=== PATIENT | female | born 1985 | race Caucasian/White ===

== ENCOUNTER 2021-09-21 10:56 | Outpatient (CLI) | payer BC, SELFPAY ==
[2021-09-21 13:53] LABS: HCG Quantitative* 3.36 mIU/mL
== END 2021-09-21 10:57 | disposition home or self-care (01) ==
LOC: FRMREF 10:57
PROVIDERS: Visit Provider Advanced Practice Midwife
DX: O20.9 Hemorrhage in early pregnancy, unspecified (principal)
CPT/HCPCS: 84702

== ENCOUNTER 2021-11-24 15:53 | Outpatient (CLI) | payer BC, SELFPAY ==
[2021-11-24 21:49] LABS: HCG Quantitative* 19.75 mIU/mL
== END 2021-11-24 15:54 | disposition home or self-care (01) ==
LOC: FRMREF 15:57
PROVIDERS: Visit Provider Obstetrics & Gynecology
DX: O20.9 Hemorrhage in early pregnancy, unspecified (principal)
CPT/HCPCS: 84702

== ENCOUNTER 2021-11-26 16:00 | Outpatient (CLI) | payer BC, SELFPAY ==
[2021-11-26 22:21] LABS: HCG Quantitative* 4.93 mIU/mL
== END 2021-11-26 16:01 | disposition home or self-care (01) ==
LOC: FRMREF 16:00
PROVIDERS: Visit Provider Obstetrics & Gynecology
DX: O20.9 Hemorrhage in early pregnancy, unspecified (principal)
CPT/HCPCS: 84702

== ENCOUNTER 2021-11-30 15:13 | Outpatient (CLI) | payer BC, SELFPAY ==
[2021-12-02 14:09] LABS: Beta-2-Microglob Serum/Plasma 1.6 mg/L (0.8-2.4)
[2021-12-03 01:22] LABS: Anti-Mullerian Hormone 4.384 ng/mL (0.176-11.705)
[2021-12-03 18:38] LABS: Cardiolipin Antibody IgA <10 APL (<=11); Cardiolipin Antibody IgG <10 GPL (<=14); Cardiolipin Antibody IgM 17 MPL (<=12)
[2021-12-13 14:05] LABS: Prothrombin Time 12.1 sec (12.0-15.5); dRVVT Screen 40 sec (33-44)
== END 2021-11-30 15:14 | disposition home or self-care (01) ==
PROVIDERS: Visit Provider Obstetrics & Gynecology
DX: N97.9 Female infertility, unspecified (principal); N96 Recurrent pregnancy loss
CPT/HCPCS: 82232; 83520; 85610; 85613; 85730; 86147; 88262

== ENCOUNTER 2021-12-27 15:35 | Outpatient (CLI) | payer BC, SELFPAY ==
--- NOTE | 2021-12-27 16:00 | CRLHL7_ITS ---
For Patients: As a result of the Century Cures Act, medical imaging exams and procedure reports are released immediately into your electronic medical record. You may view this report before your referring provider. If you have questions, please contact your health care provider. INDICATION: Recurrent miscarriage. TECHNIQUE: Ultrasound pelvis transvaginal for better assessment or to better visualize the endometrium. Real-time sonographic images with color Doppler of the ovaries. Spectral waveform imaging was not performed. COMPARISON: None. FINDINGS: Uterus: 5.7 x 2.9 x 3.6 cm. Uterus is retroflexed. Normal echotexture of the myometrium. Small cervical nabothian cysts. No masses. Endometrium: Transvaginal imaging was performed to better evaluate the endometrium. Endometrial thickness measures 7 mm. No sign of endometrial mass or fluid. Right ovary measures 2.3 x 1.6 x 1.8 cm and left ovary measures 2.5 x 1.5 x 1.7 cm. No ovarian or adnexal masses. Normal color flow in the ovaries. Cul-de-sac: No significant free fluid. IMPRESSION: Normal exam. Dictated by Jermaine Rodríguez MD @ 12/28/2021 9:30:22 AM (Electronically Signed)
== END 2021-12-27 15:36 | disposition home or self-care (01) ==
LOC: US 15:35
PROVIDERS: Visit Provider Obstetrics & Gynecology
DX: N96 Recurrent pregnancy loss (principal)
CPT/HCPCS: 76830; 76856

== ENCOUNTER 2022-01-20 14:05 | Outpatient (CLI) | payer BC, SELFPAY ==
[2022-01-20 22:23] LABS: HCG Quantitative* < 2.39 mIU/mL
== END 2022-01-20 14:06 | disposition home or self-care (01) ==
LOC: FRMREF 14:05
PROVIDERS: Visit Provider Obstetrics & Gynecology
DX: O02.81 Inappropriate change in quantitative human chorionic gonadotropin (hCG) in early pregnancy (principal)
CPT/HCPCS: 84702

== ENCOUNTER 2022-09-20 12:29 | Outpatient (CLI) | payer BC, SELFPAY ==
--- NOTE | 2022-09-20 | CRLHL7_ITS ---
For Patients: As a result of the Century Cures Act, medical imaging exams and procedure reports are released immediately into your electronic medical record. You may view this report before your referring provider. If you have questions, please contact your health care provider. CLINICAL HISTORY: RECURRENT LOSS 08/14/2022 TECHNIQUE: 2D patel scale and color Doppler images were acquired of the pelvis using a transvaginal approach. FINDINGS: On transvaginal imaging, the myometrium has a normal uniform echotexture. The uterus measures 7.3 x 3.0 x 3.7 cm. The endometrial thickness is 4 millimeters. The left ovary measures 2.9 x 2.0 x 3.1 cm in size and the right ovary measures 3.3 x 1.6 x 1.8 cm. The ovaries demonstrate normal arterial and venous blood flow on color Doppler analysis. There are no suspicious fluid collections within the cul-de-sac. IMPRESSION: New uterine fibroid. Endometrial thickness 4 millimeters. Sonohysterogram to follow. Dictated by Andrea Hallman MD @ 09/28/2022 12:06:33 PM (Electronically Signed)
--- NOTE | 2022-09-20 17:14 | W.PM.GYNPROC ---
Procedure Note Date of procedure: 09/20/22 Pre-op diagnosis: Recurrent loss Post-op diagnosis: same Procedure: Saline infusion sonography Anesthesia: none Complications: None Surgeon: Dr. Cayla Owens Pathology: none sent Findings: Vagina and cervix normal in appearance. Uterus anteverted. On ultrasound, after saline infusion, two intracavitary filling defects / probable endometrial polyps were noted along the posterior lower uterine segment. Procedure Description: We discussed risks of the procedure, including spotting, cramping, infection. Consent form reviewed with and signed by patient. Baseline pelvic ultrasound images were already collected prior to our procedure. With patient in lithotomy position, speculum was inserted. Cervix was visualized and cleansed with Betadine soaked cotton balls. First attempt to insert the saline infusion sonography catheter was unsuccessful due to stenosis at the internal os. Tenaculum was applied to the anterior lip the cervix, and repeat attempt was not successful. Speculum and the catheter were removed. Cervical dilators were brought to the room. Another sterile speculum was inserted. Tenaculum was again attached the anterior lip of the cervix. Cervix was successfully dilated with size 3 and 4 Hegar dilators. The catheter was then successfully passed through the cervix into the uterus. The balloon tip was initially inflated. The speculum and tenaculum were removed, but catheter was left in place. The transvaginal ultrasound probe was inserted. Images were obtained whilst the endometrial cavity was instilled with sterile saline. Findings were as noted above. The balloon was deflated near the end of the procedure to obtain better visualization of the lower uterine segment. Patient tolerated the procedure with great difficulty.
== END 2022-09-20 12:30 | disposition home or self-care (01) ==
LOC: US 12:30
PROVIDERS: Visit Provider Obstetrics & Gynecology
DX: N96 Recurrent pregnancy loss (principal); D25.9 Leiomyoma of uterus, unspecified; R93.89 Abnormal findings on diagnostic imaging of other specified body structures
CPT/HCPCS: 58340; 76830; 76831; A4649

== ENCOUNTER 2022-11-10 07:05 | Day surgery (SDC) | payer BC, SELFPAY ==
[2022-11-10] VITALS (8 sets, daily range): BP systolic 87–121; BP diastolic 51–81; PULSE 51–74; RESP 16; TEMP 36.3–36.5; O2SAT 93–100; BMI 30.2
[2022-11-10] MEDS: LACTATED RINGERS 1000 ML 1,000 ML 100 ML IV ×2 (07:40→12:42)
[2022-11-10] MEDS: SODIUM CHLORIDE 0.9 % (FLUSH) 10 ML SYRINGE IVF (07:40)
[2022-11-10 07:52] LABS: Ur HCG Qualitative* Negative (Negative)
[2022-11-10] MEDS: SCOPOLAMINE 1 MG/3 DAY PATCH 1 PATCH TRANSDERMA (10:57)
--- NOTE | 2022-11-10 11:14 | W.PM.H&PU ---
History & Physical Update History & Physical Update H&P Reviewed and patient assessed: No changes noted H&P Updates: Preoperative diagnosis: Recurrent loss, suspected endometrial polyps on recent saline infusion sonography Planned procedures: Hysteroscopy, polypectomy, dilation and curettage Blood type O positive Urine test negative Physical exam: General: No acute distress Psych: Alert and oriented x3, full affect HEENT: Normocephalic, atraumatic Heart: Regular rate and rhythm, no murmur rub or gallop Lungs: Clear to auscultation bilaterally
--- NOTE | 2022-11-10 11:15 | W.ANESCHARGE ---
Anesthesia Charges Start Date/Time Anesthesia Start Date: 11/10/22 Anesthesia Start Time: 11:30 Stop Date/Time Anesthesia Stop Date: 11/10/22 Anesthesia Stop Time: 12:14
[2022-11-10] MEDS: LIDOCAINE 1% MDV 20 ML INJECTION (11:49)
--- NOTE | 2022-11-10 12:11 | P.GYNPRC_ITS ---
Procedure Note Date of procedure: 11/10/22 Pre-op diagnosis: 1. Recurrent loss, 2. Suspected endometrial polyps Post-op diagnosis: other (Recurrent loss) Procedure: Hysteroscopy, visual dilation and curettage Anesthesia: MAC Complications: None Surgeon: Cayla Owens MD Estimated blood loss (mL): 3 IV fluids (mL): 800 Urine Output (mL): 10 Pathology: specimen obtained, sent to pathology Condition: stable Disposition: same day Findings: 1. Upon exam under anesthesia, vagina and cervix were normal appearance. Bimanual exam revealed uterus to be mobile, retroverted, and without any palpable masses. There were no palpable adnexal masses. 2. Upon hysteroscopy, the cavity was normal in shape. Bilateral tubal ostia w ere normal in appearance. There was some irregularity to the endometrium, but no definitive polyps. Procedure Description: Procedure in detail: Patient was taken to the operating room with IV running. She was positioned in dorsal lithotomy position with her legs fully supported in Yellofin stirrups. Monitored anesthesia care was administered. She was prepped and draped in the usual sterile fashion. Exam under anesthesia was performed for the above-noted findings. Speculum was inserted. Cervix visualized and grasped along the anterior lip with a single-tooth tenaculum. Paracervical block was performed for total of 10 mL of 1% lidocaine. Cervix was serially dilated to accommodate the TRUCLEAR hysteroscope. This was assembled with saline inflow and outflow in place. The line was flushed of bubbles. The hysteroscope was advanced through the cervix into the endometrial cavity for the above noted findings. The tissue morcellator was then inserted through the operating channel. Window lock was performed. Under direct visualization, the endometrial cavity was circumferentially curetted with the tissue morcellator. The hysteroscope and morcellator were then removed from the uterus. Tenaculum was removed from the anterior lip of cervix. Hemostasis was noted. Patient tolerated procedure well. She was taken to recovery area in stable condition.
--- NOTE | 2022-11-10 12:15 | W.ANESCHARGE ---
Anesthesia Charges Start Date/Time Anesthesia Start Date: 11/10/22 Anesthesia Start Time: 11:30 Stop Date/Time Anesthesia Stop Date: 11/10/22 Anesthesia Stop Time: 12:14
[2022-11-10] MEDS: hydrOXYzine pamoate 25 MG CAPSULE PO (12:20)
[2022-11-10] MEDS: ACETAMINOPHEN 500 MG TABLET 1000 MG PO (12:20)
[2022-11-10] MEDS: fentaNYL 100 MCG/2 ML inj 50 MCG IVP (12:30)
== END 2022-11-10 14:00 | disposition home or self-care (01) ==
LOC: OR 07:06
PROVIDERS: PCP Family Medicine; Visit Provider Obstetrics & Gynecology
PROC: 0UDB8ZZ Extraction of Endometrium, Via Natural or Artificial Opening Endoscopic (ICD-10-PCS; CPT 58558; principal; 2022-11-10 11:30)
DX: N96 Recurrent pregnancy loss (principal)
CPT/HCPCS: 58558; 00952; 36415; 81025; 86850; 86900; 86901; 88305; A9270; J1885; J2250; J2704; J3010; J7120

== ENCOUNTER 2022-11-25 12:10 | Outpatient (CLI) | payer BC, SELFPAY | END 2022-11-25 12:11 | disposition home or self-care (01) | PROVIDERS: PCP Family Medicine; Visit Provider Obstetrics & Gynecology | DX: Z01.818 Encounter for other preprocedural examination (principal); R10.2 Pelvic and perineal pain; N89.8 Other specified noninflammatory disorders of vagina; N96 Recurrent pregnancy loss | CPT/HCPCS: 82306; 84146; 84439; 84443; 86376; 87086 ==

== ENCOUNTER 2022-12-02 14:32 | Outpatient (CLI) | payer BC, SELFPAY ==
--- NOTE | 2022-12-02 15:00 | CRLHL7_ITS ---
For Patients: As a result of the Century Cures Act, medical imaging exams and procedure reports are released immediately into your electronic medical record. You may view this report before your referring provider. If you have questions, please contact your health care provider. CLINICAL HISTORY: Pelvic and perineal pain Comparison 09/20/2022 TECHNIQUE: 2D patel scale ultrasound. In addition color Doppler and spectral Doppler analysis was performed of the pelvis using a transabdominal and transvaginal approach. FINDINGS: The myometrium has a normal uniform echotexture. The uterus measures 7.3 x 3.2 x 4.0 cm. The endometrial lining measures 11 mm in thickness. The right ovary measures 3.6 x 1.8 x 1.6 cm in size and the left ovary measures 2.9 x 1.6 x 1.9 cm. The ovaries demonstrate normal arterial and venous blood flow on color Doppler and spectral Doppler analysis. There are no suspicious fluid collections within the cul-de-sac. IMPRESSION: No uterine fibroid, adnexal mass, excess pelvic free fluid or ovarian torsion. Dictated by Andrea Hallman MD @ 12/02/2022 3:33:17 PM (Electronically Signed)
== END 2022-12-02 14:33 | disposition home or self-care (01) ==
LOC: US 14:33
PROVIDERS: PCP Family Medicine; Visit Provider Obstetrics & Gynecology
DX: R10.2 Pelvic and perineal pain (principal)
CPT/HCPCS: 76830; 76856; 93976

== ENCOUNTER 2023-01-16 13:48 | Outpatient (CLI) | payer BC, SELFPAY | END 2023-01-16 13:49 | disposition home or self-care (01) | LOC: NFLDREF 01-20 12:04 | PROVIDERS: PCP Family Medicine; Referring Provider Family Medicine; Visit Provider Obstetrics & Gynecology | DX: Z87.59 Personal history of other complications of pregnancy, childbirth and the puerperium (principal) | CPT/HCPCS: 84702 ==

== ENCOUNTER 2023-01-18 13:11 | Outpatient (CLI) | payer BC, SELFPAY | END 2023-01-18 13:12 | disposition home or self-care (01) | LOC: NFLDREF 01-20 10:42 | PROVIDERS: PCP Family Medicine; Referring Provider Family Medicine; Visit Provider Obstetrics & Gynecology | DX: Z32.00 Encounter for pregnancy test, result unknown (principal); Z87.59 Personal history of other complications of pregnancy, childbirth and the puerperium | CPT/HCPCS: 84702 ==

== ENCOUNTER 2023-01-24 15:39 | Outpatient (CLI) | payer BC, SELFPAY ==
--- NOTE | 2023-01-24 16:00 | CRLHL7_ITS ---
For Patients: As a result of the Century Cures Act, medical imaging exams and procedure reports are released immediately into your electronic medical record. You may view this report before your referring provider. If you have questions, please contact your health care provider. INDICATION: DATING AND VIABILITY, H/O RECURRENT MISCARRIAGE COMPARISON: None. TECHNIQUE: Real-time patel-scale imaging of the pelvis was performed. FINDINGS: Intrauterine gestational sac is present with a mean sac diameter 1.6 cm, 6 weeks 3 days. pole is present measuring 4.4 millimeters, 6 weeks 1 day. No heart tones. Subchorionic hemorrhage measuring 1.3 x 0.7 x 1.1 cm. Right ovarian corpus luteal cyst measuring 2.2 x 1.8 x 1.9 cm. Normal left ovary. Yolk sac measures 3.8 millimeters. IMPRESSION: Intrauterine with pole measuring 4.4 millimeters, 6 weeks 1 day. No heart tones. Follow-up in 11-14 days recommended. Dictated by Andrea Hallman MD @ 01/25/2023 7:17:50 AM (Electronically Signed)
== END 2023-01-24 15:40 | disposition home or self-care (01) ==
LOC: US 15:40
PROVIDERS: PCP Family Medicine; Visit Provider Registered Nurse
DX: Z34.91 Encounter for supervision of normal pregnancy, unspecified, first trimester (principal); O09.891 Supervision of other high risk pregnancies, first trimester; Z3A.01 Less than 8 weeks gestation of pregnancy; N96 Recurrent pregnancy loss
CPT/HCPCS: 76817

== ENCOUNTER 2023-02-07 12:41 | Outpatient (CLI) | payer BC, SELFPAY ==
--- NOTE | 2023-02-07 13:00 | CRLHL7_ITS ---
For Patients: As a result of the Century Cures Act, medical imaging exams and procedure reports are released immediately into your electronic medical record. You may view this report before your referring provider. If you have questions, please contact your health care provider. INDICATION: First trimester dating. TECHNIQUE: Ultrasound OB pelvis transabdominal and transvaginal. Real-time patel-scale imaging of the pelvis was performed. COMPARISON: ultrasound on 01/25/2023 FINDINGS: Intrauterine gestational sac: Present, mean sac diameter of 2.1 centimeters. Embryo present: Yes. Yolk sac present: Yes. Embryo cardiac activity: None Jal rump Length: 0.5 centimeters. Sonographic gestational age: 6 weeks and 1 day. Perigestational hemorrhage: None. Ovaries and adnexae: The right ovary is within normal limits in appearance. The left ovary is not visualized. IMPRESSION: There is redemonstration of an intrauterine with no interval growth compared to prior examination and no heart tones. Findings are consistent with demise. Dictated by Cameron Toscano MD @ 02/07/2023 2:58:46 PM (Electronically Signed)
== END 2023-02-07 12:42 | disposition home or self-care (01) ==
LOC: US 12:41
PROVIDERS: PCP Family Medicine; Visit Provider Registered Nurse
DX: Z34.91 Encounter for supervision of normal pregnancy, unspecified, first trimester (principal); O36.8310 Maternal care for abnormalities of the fetal heart rate or rhythm, first trimester, not applicable or unspecified; Z3A.01 Less than 8 weeks gestation of pregnancy
CPT/HCPCS: 76817

== ENCOUNTER 2023-02-09 11:40 | Day surgery (SDC) | payer BC, SELFPAY ==
[2023-02-09 12:19] VITALS: BMI 31.6
[2023-02-09] MEDS: LACTATED RINGERS 1000 ML 1,000 ML 100 ML IV (12:45)
[2023-02-09] MEDS: DOXYCYCLINE HYCLATE 200 MG in 0.9 % SODIUM CHLORIDE 250 ml 250 ML 250 MG IVPB (13:00)
--- NOTE | 2023-02-09 14:02 | W.ANESCHARGE ---
Anesthesia Charges Start Date/Time Anesthesia Start Date: 02/09/23 Anesthesia Start Time: 14:23 Stop Date/Time Anesthesia Stop Date: 02/09/23 Anesthesia Stop Time: 15:00
[2023-02-09] MEDS: SILVER NITRATE APPLICATOR 1 EACH STICK..EA. 2 EACH TOPICAL (14:42)
[2023-02-09 14:56] VITALS: BP 111/79; PULSE 80; RESP 16; TEMP 36.3; O2SAT 100
--- NOTE | 2023-02-09 15:02 | W.ANESCHARGE ---
Anesthesia Charges Start Date/Time Anesthesia Start Date: 02/09/23 Anesthesia Start Time: 14:23 Stop Date/Time Anesthesia Stop Date: 02/09/23 Anesthesia Stop Time: 15:00
[2023-02-09 15:15] VITALS: BP 105/75; PULSE 76; RESP 16; O2SAT 100
[2023-02-09 15:30] VITALS: BP 110/78; PULSE 74; RESP 16; O2SAT 100
--- NOTE | 2023-02-09 15:33 | W.PM.GYNPROC ---
Procedure Note Date of procedure: 02/09/23 Pre-op diagnosis: Missed at 6 weeks, 1 day by CRL Post-op diagnosis: same Procedure: Suction uterine curettage Anesthesia: MAC Complications: None Surgeon: Cayla Owens MD Estimated blood loss (mL): 10 IV fluids (mL): 800 Urine Output (mL): 25 Pathology: specimen obtained, sent to pathology (Products of conception sent for surgical pathology and cytogenetics, reviewed at time of postoperative debrief) Condition: stable Disposition: same day Findings: 1. Upon pelvic exam under anesthesia, vagina and cervix were normal in appearance. Uterus was mobile, anteverted, and of normal size and texture. 2. Small amount of products of conception obtained with uterine curettage Procedure Description: Patient was taken to the operating with IV running. She had received a single dose of IV doxycycline in preoperative prophylaxis. She was placed in dorsal lithotomy position. Monitored anesthesia care was administered. She was prepped and draped in the usual sterile fashion. Her bladder was straight catheterized Exam under anesthesia was performed for the above-noted findings. Speculum was inserted. Cervix was grasped along its anterior lip with a single-tooth tenaculum. The cervix was serially dilated to 8 [place]. A size 7 rigid suction cannula was then passed through the cervix to the uterine fundus. Suction was applied, and the suction cannula was withdrawn along the path of insertion. This was repeated 2 more times, without obvious return of products of conception on the final pass. Procedure was deemed complete. The tenaculum was removed from the anterior lip the cervix, and hemostasis was achieved with combination of pressure using ring forcep and silver nitrate. The speculum was then removed from the vagina. Patient tolerated procedure well and was taken recovery area in stable condition.
[2023-02-09 15:45] VITALS: BP 103/72; PULSE 76; RESP 16; O2SAT 100
== END 2023-02-09 15:52 | disposition home or self-care (01) ==
PROVIDERS: PCP Family Medicine; Visit Provider Obstetrics & Gynecology
PROC: (CPT 59820; principal; 2023-02-09 13:30)
DX: O02.1 Missed abortion (principal)
CPT/HCPCS: 59820; 1965; 36415; 81229; 86850; 86900; 86901; 88233; 88305; 940; A9270; J1100; J1885; J2250; J2405; J2704; J3010; J3490; J7050; J7120

== ENCOUNTER 2023-04-04 14:20 | Outpatient (CLI) | payer BC, SELFPAY ==
[2023-04-04 22:00] LABS: Chlamydia DNA Amplified* Not Detected (No Detected); GC DNA Amplified* Not Detected (No Detected)
== END 2023-04-04 14:21 | disposition home or self-care (01) ==
PROVIDERS: PCP Family Medicine; Visit Provider Obstetrics & Gynecology
DX: R10.2 Pelvic and perineal pain (principal)
CPT/HCPCS: 87086; 87491; 87591

== ENCOUNTER 2023-04-13 15:31 | Outpatient (CLI) | payer BC, SELFPAY ==
--- NOTE | 2023-04-13 16:00 | CRLHL7_ITS ---
For Patients: As a result of the Century Cures Act, medical imaging exams and procedure reports are released immediately into your electronic medical record. You may view this report before your referring provider. If you have questions, please contact your health care provider. CLINICAL HISTORY: Pelvic pain TECHNIQUE: 2D patel scale ultrasound. In addition color Doppler and spectral Doppler analysis was performed of the pelvis using a transabdominal and transvaginal approach. FINDINGS: The myometrium has a normal uniform echotexture. The uterus measures 6.0 x 3.9 x 3.5 cm. The endometrial lining appears normal and measures 7 mm in thickness. The right ovary measures 3.4 x 2.3 x 2.5 cm in size and the left ovary measures 2.8 x 2.0 x 1.4 cm. The ovaries demonstrate normal arterial and venous blood flow on color Doppler and spectral Doppler analysis. Dominant follicles within each ovary measuring 19 millimeters on the right and 8 millimeters on the left. There are no suspicious fluid collections within the cul-de-sac. IMPRESSION: Normal pelvic ultrasound. No torsion or adnexal mass. No excess pelvic free fluid. Dictated by Andrea Hallman MD @ 04/14/2023 10:18:55 AM (Electronically Signed)
== END 2023-04-13 15:32 | disposition home or self-care (01) ==
LOC: US 15:31
PROVIDERS: PCP Family Medicine; Visit Provider Obstetrics & Gynecology
DX: R10.2 Pelvic and perineal pain (principal)
CPT/HCPCS: 76830; 76856; 93976

== ENCOUNTER 2023-11-02 12:45 | Outpatient (CLI) | payer BC, SELFPAY ==
--- NOTE | 2023-11-02 13:00 | CRLHL7_ITS ---
For Patients: As a result of the Century Cures Act, medical imaging exams and procedure reports are released immediately into your electronic medical record. You may view this report before your referring provider. If you have questions, please contact your health care provider. INDICATION: First trimester scan, establish dates. COMPARISON: None. TECHNIQUE: Real-time patel-scale imaging of the pelvis was performed. FINDINGS: Intrauterine gestational sac is present measuring 1.8 cm, 6 weeks 5 days. pole is present measuring 2.8 millimeters, 5 weeks 6 days. No heart rate. No yolk sac. No subchorionic hemorrhage. Corpus luteal cyst left ovary. Unremarkable right ovary. IMPRESSION: Intrauterine gestational sac containing a pole. [place]-rump length measures 5 weeks 6 days. No heart rate. Follow-up in 11-14 days recommended. Dictated by Andrea Hallman MD @ 11/02/2023 1:52:02 PM (Electronically Signed)
== END 2023-11-02 12:46 | disposition home or self-care (01) ==
LOC: US 12:46
PROVIDERS: PCP Family Medicine; Visit Provider Physician Assistant
DX: Z34.91 Encounter for supervision of normal pregnancy, unspecified, first trimester (principal); Z3A.01 Less than 8 weeks gestation of pregnancy
CPT/HCPCS: 76817

== ENCOUNTER 2023-11-17 12:45 | Outpatient (CLI) | payer BC, SELFPAY ==
--- NOTE | 2023-11-17 13:00 | CRLHL7_ITS ---
For Patients: As a result of the Cures Act, medical imaging exams and procedure reports are released immediately into your electronic medical record. You may view this report before your referring provider. If you have questions, please contact your health care provider. HISTORY: viability and dating. COMPARISON: Early OB ultrasound from 11/02/2023. TECHNIQUE: Transvaginal ultrasound examination of the early was performed. FINDINGS: A single intrauterine gestational sac is seen with a pole. The crown-rump length measurement of 0.3 cm gives an estimated gestational age of 5 weeks 6 days with an estimated date of delivery of 07/13/2024. This does not correlate well with the clinical age of 8 weeks 3 days, and there has been no growth compared to the previous ultrasound. No cardiac activity is seen. The findings are that of demise. There is no sign of free fluid in the pelvis. The ovaries are normal in appearance. IMPRESSION: 1. Single intrauterine gestation with estimated age of 5 weeks 6 days, no interval growth compared to the previous ultrasound. 2. No cardiac activity is seen, findings of demise. Dictated by Korey Cordero MD @ 11/17/2023 9:25:17 PM (Electronically Signed)
== END 2023-11-17 12:46 | disposition home or self-care (01) ==
LOC: US 12:45
PROVIDERS: PCP Family Medicine; Visit Provider Physician Assistant
DX: Z34.91 Encounter for supervision of normal pregnancy, unspecified, first trimester (principal); O36.8310 Maternal care for abnormalities of the fetal heart rate or rhythm, first trimester, not applicable or unspecified; Z3A.01 Less than 8 weeks gestation of pregnancy
CPT/HCPCS: 76817

== ENCOUNTER 2023-11-21 06:48 | Day surgery (SDC) | payer BC, SELFPAY ==
--- OUTSIDE RECORDS SUMMARY | 2023-11-21 06:50 | XMS_ITS | Referral Summary ---
Author Organization [facility] Address [address] [place] [id number] Care Team Providers Care Electronics Maintenance Technician Name Role Phone No Ref-Primary, Physician Primary Care Provider Allergies Active Allergy Reactions Criticality Noted Date Comments Loratadine Hives 07/07/2021 Penicillins Hives 07/07/2021 Social History Tobacco Use Types Packs/Day Years Used Date Smoking Tobacco: Never Assessed Adolescent Education Answer Date Record ed Getting School Help Needed Not on file 11/26 Sex and Gender Information Value Date Recorded Sex Assigned at Not on file Gender Identity Not on file Sexual Orientation Not on file Last Filed Vital Signs Vital Sign Reading Time Taken Comments Blood Pressure 127/83 07/07/2021 3:00 PM CDT Pulse 69 07/07/2021 3:00 PM CDT Temperature 36.5 ??C (97.7 ??F) 07/07/2021 10:46 AM C DT Respiratory Rate 18 07/07/2021 10:46 AM CDT Oxygen Saturation 97% 07/07/2021 3:00 PM CDT Inhaled Oxygen Concentration - - Weight 80.7 kg (178 lb) 07/07/2021 10:46 AM CDT Height 160 cm (5' 3) 07/07/2021 10:46 AM CDT Body Mass Index 31.53 07/07/2021 10:46 AM CDT Plan of Treatment Not on file Procedures Procedure Name Priority Date/Time Associated Diagnosis Comments COMPREHENSIVE METABOLIC PANEL STAT 07/07/2021 11:50 AM CDT from Last 3 Months or Most Recently Relevant to Health Maintenance Results * Comprehensive metabolic panel (07/07/2021 11:50 AM CDT) Sodium 138 133 - 144 mmol/L 07/07/2021 12:24 PM CDT LABORATORY Potassium 3.8 3.4 - 5.3 mmol/L 07/07/2021 12:24 PM CDT LABORATORY Chloride 108 94 - 109 mmol/L 07/07/2021 12:24 PM CDT LABORATORY Carbon Dioxide (CO2) 26 20 - 32 mmol/L 07/07/2021 12:24 PM CDT LABORATORY Anion Gap 4 3 - 14 mmol/L 07/07/2021 12:24 PM CDT LABORATORY Urea Nitrogen 9 7 - 30 mg/dL 07/07/2021 12:24 PM CDT LABORATORY Creatinine 0.72 0.52 - 1.04 mg/dL 07/07/2021 12:24 PM CDT LABORATORY Calcium 9.5 8.5 - 10.1 mg/dL 07/07/2021 12:24 PM CDT LABORATORY Glucose 78 70 - 99 mg/dL 07/07/2021 12:24 PM CDT LABORATORY Alkaline Phosphatase 109 40 - 150 U/L 07/07/2021 12:24 PM CDT LABORATORY AST 14 0 - 45 U/L 07/07/2021 12:24 PM CDT LABORATORY ALT 23 0 - 50 U/L 07/07/2021 12:24 PM CDT LABORATORY Protein Total 8.1 6.8 - 8.8 g/dL 07/07/2021 12:24 PM CDT LABORATORY Albumin 3.9 3.4 - 5.0 g/dL 07/07/2021 12:24 PM CDT LABORATORY Bilirubin Total 0.4 0.2 - 1.3 mg/dL 07/07/2021 12:24 PM CDT LABORATORY GFR Estimate >90 >60 mL/min/1.7 3m2 07/07/2021 12:24 PM CDT LABORATORY Comment:Effective February 042020 eGFRcr in adults is calculated using the 2020 CKD-EPI creatinine equation which includes age and gender (Jean goel al., NEJM, DOI: 10.1056/ZOORvc1144741) Blood BLOOD SPECIMEN / Unknown Venipuncture / Unknown 07/07/2021 11:50 AM CDT 07/07/2021 11:57 AM CDT Chris Coyle MD LAB - BLOOD ORD ERABLES [facility] [address] Lab (1st floor, no room number) [place] [address], [facility] [phone] from Last 3 Months or Most Recently Relevant to Health Maintenance Care Teams Electronics Maintenance Technician Relationship Specialty Start Date End Date No Ref-Primary, Physician PCP - General 07/07/21
--- OUTSIDE RECORDS SUMMARY | 2023-11-21 06:50 | XMS_ITS | Clinical Summary ---
Author Organization [facility] Address [address] [place] [id number] Care Team Providers Care School Lunch Monitor Name Role Phone No Ref-Primary, Physician Primary [...] 07/07/2021 10:46 AM CDT Plan of Treatment Health Maintenance Due Date Last Done Comments ADVANCE CARE PLANNING 1987 ANNUAL REVIEW OF HM ORDERS 1987 HIV SCREENING 12/29/2002 HEPATITIS C SCREENING 12/29/2005 PAP 12/29/2008 HPV IMMUNIZATION (2 - 3-dose series) 07/18/2014 06/20/2014 YEARLY PREVENTIVE VISIT 09/30/2021 09/30/2020 PHQ-2 (once per calendar year) 2023 COVID-19 Vaccine ( season) 2023 03/09/2021, 05/14/2020, 04/09/2020 INFLUENZA VACCINE (#1) 2023 , 12/03/2019, 03/01/2019, Additional history exists GLUCOSE 07/07/2024 07/07/2021 DTAP/TDAP/TD IMMUNIZATION (8 - Td or Tdap) 01/30/2028 01/29/2018, 06/05/2009, 12/29/1999, Additional history exists HEPATITIS B IMMUNIZATION Completed 001, 08/04/2000, 07/11/2000 MENINGITIS IMMUNIZATION Aged Out 06/05/2009 No l onger eligible based on patient's age to complete this topic Pneumococcal Vaccine: Pediatrics (0 to 5 Years) and At-Risk Patients (6 to 64 Years) Aged Out No longer eligible based on patient's age to complete this topic RSV MONOCLONAL ANTIBODY Aged Out No l onger eligible based on patient's age to complete this topic Procedures Procedure Name Priority Date/Time Associated Diagnosis Comments COMPREHENSIVE METABOLIC PANEL STAT 07/07/2021 11:50 AM CDT from Last 3 Months or Most Recently Relevant to Health Maintenance Results * Comprehensive metabolic panel (07/07/2021 11:50 AM CDT) Sodium 138 133 - 144 mmol/L 07/07/2021 12:24 PM CDT [facility] Potassium 3.8 3.4 - 5.3 mmol/L 07/07/2021 12:24 PM CDT [facility] Chloride 108 94 - 109 mmol/L 07/07/2021 12:24 PM CDT [facility] Carbon Dioxide (CO2) 26 20 - 32 mmol/L 07/07/2021 12:24 PM CDT [facility] Anion Gap 4 3 - 14 mmol/L 07/07/2021 12:24 PM CDT [facility] Urea Nitrogen 9 7 - 30 mg/dL 07/07/2021 12:24 PM CDT [facility] Creatinine 0.72 0.52 - 1.04 mg/dL 07/07/2021 12:24 PM CDT [facility] Calcium 9.5 8.5 - 10.1 mg/dL 07/07/2021 12:24 PM CDT [facility] Glucose 78 70 - 99 mg/dL 07/07/2021 12:24 PM CDT [facility] Alkaline Phosphatase 109 40 - 150 U/L 07/07/2021 12:24 PM CDT [facility] AST 14 0 - 45 U/L 07/07/2021 12:24 PM CDT [facility] ALT 23 0 - 50 U/L 07/07/2021 12:24 PM CDT [facility] Protein Total 8.1 6.8 - 8.8 g/dL 07/07/2021 12:24 PM CDT [facility] Albumin 3.9 3.4 - 5.0 g/dL 07/07/2021 12:24 PM CDT [facility] Bilirubin Total 0.4 0.2 - 1.3 mg/dL 07/07/2021 12:24 PM CDT [facility] GFR Estimate >90 >60 mL/min/1.7 3m2 07/07/2021 12:24 PM CDT [facility] Comment:Effective February 042020 eGFRcr in adults is calculated using the 2020 CKD-EPI creatinine equation which includes age and gender (Jean et al., NEJ, DOI: 10.1056/BPWRxx0356357) Blood BLOOD SPECIMEN / Unknown Venipuncture / Unknown 07/07/2021 11:50 AM CDT 07/07/2021 11:57 AM CDT Chris Coyle MD LAB - BLOOD ORD ERABLES LABORATORY [facility] [address] Lab (1st floor, no room number) [place] [address], [facility] [phone] from Last 3 Months or Most Recently Relevant to Health Maintenance Care Teams School Lunch Monitor Relationship Specialty Start Date End Date No Ref-Primary, Physician PCP - General 07/07/21
--- OUTSIDE RECORDS SUMMARY | 2023-11-21 06:50 | XMS_ITS | Clinical Summary ---
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/05/2023 Family history of breast cancer 09/27/2019 Anemia, 03/24/2018 Migraines 09/27/2017 Hyperhydrosis disorder 06/05/2009 IBS (irritable bowel syndrome) Overview (06/05/2009): Colonoscopy, endoscopy, abd US, upper GI ABFT, Stool cx negative Anxiety Resolved Problems Problem Noted Date Diagnosed Date Resolved Date Delivery outcome of single liveborn 03/23/2018 03/24/2018 Arrest of descent, delivered , current hospitalization 03/23/2018 10/05/2023 Primary LST deliver y, arrest of dexcent 03/23/2018 10/05/2023 premature rupture of membranes with onset of labor more than 24 hours following rupture in third trimester 03/22/2018 10/05/2023 Apnea 12/28/2017 10/05/2023 related nausea, antepartum 09/28/2017 03/24/2018 BMI 30-34.9 09/27/2017 10/05/2023 Supervision of normal first , antepartum 09/13/2017 10/05/2023 Overview (02/19/2018): Provider: Vic Jessica MD - Please call for delivery Sex/Name: [place]! FOB: Aki Dating based on: 7 week US (6 days later than dating based on approximate LMP) US: Hgb: --> 1st trimester Child classes Genetic referral - nuchal fold - [facility] - amniocentesis (11.1 to 13.6 weeks) 2nd trimester Quad screen (15-18 weeks) kick counts (10 kicks per 2 hrs) 3rd trimester Breast/bottle - breast Family Planning/Tubal - [facility] Labor/Delivery - Aki will be present, wants no epidural but open to it Post delivery for baby (Vit K, eye ointment, Hep B) - ok Baby care Vic Jessica MD Circumcision - ok if boy Nitrous consent Bilateral temporomandibular joint pain 07/13/2017 10/05/2023 Atypical nevus 09/16/2016 10/05/2023 TMJ (dislocation of temporomandibular joint) 6 07/13/2017 Fatigue 11/06/2015 01/06/2016 Surveillance of other previo usly prescribed contraceptive method 05/09/2006 07/13/2017 Encounters Date Type Department Care Team Description 11/02/2023 Orders Only [facility] Scanner 1 scan: (1-Ord) MODALE, OB TRANSVAGINAL, 11/02/2023 10/09/2023 Orders Only [facility] Scanner 1 scan: (1-Ord) INCOMING RECORDS-US, [facility], 10/09/2023 10/09/2023 Orders Only [facility] Scanner 1 scan: (1-Ord) INCOMING RECORDS-LABS, [facility], 10/09/2023 10/09/2023 Orders Only [facility] Scanner 1 scan: (1-Ord) INCOMING RECORDS-LABS, [facility], 10/09/2023 10/09/2023 Orders Only [facility] Scanner 1 scan: (1-Ord) INCOMING RECORDS-US, [facility], 10/09/2023 10/09/2023 Orders Only [facility] Scanner 1 scan: (1-Ord) INCOMING RECORDS-CT, [facility] and [facility], 10/09/2023 10/09/2023 Orders Only [facility] Scanner 1 scan: (1-Ord) INCOMING RECORDS-US, [facility] and [facility], 10/09/2023 10/09/2023 Orders Only [facility] Scanner 1 scan: (1-Ord) INCOMING RECORDS-LABS, [facility], 10/09/2023 10/09/2023 Orders Only [facility] Scanner 1 scan: (1-Ord) INCOMING RECORDS-[facility], [facility], 10/09/2023 10/05/2023 8:40 AM CDT Office Visit [facility] [address] [facility] [place] [address] Ashlie Devine MD Physical 10/04/2023 Travel from Last 3 Months Immunizations Name Administration Dates Next Due AMB Influenza, IIV4 PF (=>6 mos Flulaval,Fluzone Fluarix)(Flu Clinic Only) 12/03/2019 COVID-19 vaccine (Moderna 100mcg/0.5mL) PF, MDV 05/14/2020,04/09/2020 COVID-19 vaccine (Pfizer-Bio NTech 30mcg/0.3mL) 12YO+ ROCKY-SUCROSE PF, MDV 03/09/2021 DTaP 10/14/1993,,07/22/1988,05/20,03/17/1988 Hepatitis B (Peds) 01/11/2001,08/04/2000, 001 Human Papilloma Virus Vaccine 06/20/2014 Influenza, IIV4 03/09/2021,03/01/2019,11/28/2017 Influenza,LAIV3 Live Intrana radha (Flumist) 03/13/2015 Influenza,LAIV4 Live Intrana radha (Flumist) 03/13/2015 MMR 07/11/2000,04/27/1990 Meningococcal Vaccine (Menactra) 06/05/2009 Oral Polio Vaccine 10/14/1993, 1,05/20/1988,03/17 Td (Age >=7 Years) 12/29/1999 Tdap 01/29/2018,06/05/2009 Varicella Vaccine 11/30/2000,10/19/2000 Family History Medical History Relation Name Comments Hyperlipidemia Father mayi still Hypertension Father mayi still Snoring Father mayi still Asthma Maternal Grandfather Diabetes Maternal Grandfather Heart Disease Maternal Grandfather Cancer-breast Maternal Grandmother Heart Disease Maternal Grandmother Good Health Mother dayana still Snoring Mother dayana still Cancer Paternal Grandfather throat/ throat Mental illness Paternal Grandmother Cancer-ovarian No Family History Relation Name Status Comments Father mayi still Alive Maternal Grandfather Alive sandra ons and alzheimers Maternal Grandmother Alive Mother dayana still Alive Paternal Grandfather (Age 60 yrs ) throat cancer Paternal Grandmother Alive Social History Tobacco Use Types Packs/Day Years Used Date Smoking Tobacco: Former Cigarettes 0.1 11.4 0 03/06/2006 - 08/05/2017 Smokeless Tobacco: Never Tobacco Cessation:Counseling Given: Not Answered Alcohol Use Standard Drinks/Week Comments Yes 0 (1 standard drink = 0.6 oz pur e alcohol) social- 2-3 drinks per month PHQ-2 Answer Date Recorded PHQ-2 TOTAL SCORE 1 10/05/2023 Social Connections Answer Date Recorded Frequency of Communication with Friends and Fami ly 0 10/04/2023 Financial Resource Strain Answer Date R ecorded Difficulty of Paying Living Expenses 3 10/04/2023 Difficulty of Paying Living Expenses Not on file 10/04/2023 Food Insecurity Answer Date Recorded Worried About Running Out of Food in the Last Ye ar 1 10/04/2023 Transportation Needs Answer Date Record ed Lack of Transportation (Medical) 1 10/04/2023 Housing Stability Answer Date Recorded Unable to Pay for Housing in the Last Year 1 10/04/2023 Sex and Gender Information Value Date Recorded Sex Assigned at Not on file Gender Identity Not on file Sexual Orientation Not on file Obstetrics History Para Term AB IAB SAB Ectopic Multiple Livin g Live Births 4 1 0 1 3 0 3 0 0 1 1 Date Outcome GA Total Labor Labor/2nd/3rd Weight Sex Type Anes PTL Josselyn A1 A5 Name Clin 019 36w 5d 3.38 kg (7 lb 7.2 oz) M CS-LTr anv Epidu ral,S sulma N Kasia rodriguez /Rivas burton Complications:Failure to Pro aisha in Second Stage,Arrest of descent, delivered, current hospitalization Delivery Location:[place] Comments:induced at 36 2/7 for PROM , arrest descent 3 days later 022 SAB SPONTA NEOUS 10/2021 SAB SPONTA NEOUS 12/2021 SAB SPONTA NEOUS Last Filed Vital Signs Vital Sign Reading Time Taken Comments Blood Pressure 98/62 10/05/2023 8:30 AM CDT Pulse 78 10/05/2023 8:30 AM CDT Temperature 36.6 ??C (97.8 ??F) 06/08/2022 2:39 PM CD T Respiratory Rate 16 09/30/2020 9:52 AM CDT Oxygen Saturation 98% 06/06/2023 1:52 PM CDT Inhaled Oxygen Concentration - - Weight 68.2 kg (150 lb 6.4 oz) 10/05/2023 8:30 A M CDT Height 160.2 cm (5' 3.07) 06/06/2023 1:52 PM CD T Body Mass Index 26.58 06/06/2023 1:52 PM CDT Plan of Treatment Health Maintenance Due Date Last Done Comments COVID-19 vaccine series ( season) 2023 03/09/2021, 05/14/2020, 04/09/2020 Influenza for age 9-49 11/05/2023 , 12/03/2019, 03/01/2019, Additional history exists BMI (ht and wt on same day) for age 18+ 06/05/2024 06/06/2023, 07/05/2022, 03/25/2022, Additional history exists Pap test for age 21-65 09/26/2024 , 09/27/2019, 09/16/2016, Additional history exists Depression screening for age 12+ 10/04/2024 10/05/2023, 03/25/2022, 09/30/2020, Additional history exists Tetanus booster 01/30/2028 01/29/2018, 04/2009, 12/29/1999 HIV for age 15-65 Completed 08/17/2017 Tdap Completed 01/29/2018, 06/05/2009 Hepatitis C screening for age 18-79 Completed 10/05/2023 Pneumococcal series for age 6-64 Aged Out No longer eligible based on patient's age to complete this topic Procedures Procedure Name Priority Date/Time Associated Diagnosis Comments SCAN-ULTRASOUND REPORT 11/02/2023 12:00 AM CDT SCAN CORRESP-LABORATORY RESULTS 10/09/2023 12:00 AM CDT SCAN CORRESP-LABORATORY RESULTS 10/09/2023 12:00 AM CDT SCAN CORRESP-LABORATORY RESULTS 10/09/2023 12:00 AM CDT SCAN CORRESP-LABORATORY RESULTS 10/09/2023 12:00 AM CDT SCAN CORRESP-IMAGING 10/09/2023 12:00 AM CDT SCAN CORRESP-IMAGING 10/09/2023 12:00 AM CDT SCAN CORRESP-IMAGING 10/09/2023 12:00 AM CDT SCAN CORRESP-IMAGING 10/09/2023 12:00 AM CDT ANTI HCV Routine 10/05/2023 9:25 AM CDT Need for hepatitis C screening test TSH WITH REFLEX Routine 10/05/2023 9:25 AM CDT Routine general medical examination at a health care facility LIPID PANEL Routine 10/05/2023 9:25 AM CDT Routine general medical examination at a health care facility COMP METABOLIC PANEL Routine 10/05/2023 9:25 AM CDT Routine general medical examination at a health care facility CBC W PLT NO DIFF Routine 10/05/2023 9:2 5 AM CDT Screening for cardiovascular condition HEMOGLOBIN A1C SCREENING Routine 10/05/2023 9:25 AM CDT Screening for cardiovascular condition DIRECTOR NON PROFIT THIN PREP PAP SCREEN IMAGED Routine 09/27/2019 2:00 PM CDT Screening for cervical cancer ANTI HIV 1/2 Routine 08/17/2017 10:25 AM CDT Encounter for supervision of normal , antepartum, unspecified from Last 3 Months or Most Recently Relevant to Health Maintenance Results * SCAN-ULTRASOUND REPORT (11/02/2023 12:00 AM CDT) Anatomical Region Laterality Modality Other Scanner OTHER * SCAN CORRESP-LABORATORY RESULTS (10/09/2023 12:00 AM CDT) Only the most recent of4 resultswithin the time period is included. Scanner OTHER * SCAN CORRESP-IMAGING (10/09/2023 12:00 AM CDT) Only the most recent of4 resultswithin the time period is included. Anatomical Region Laterality Modality Other Scanner OTHER * HEMOGLOBIN A1C SCREENING (10/05/2023 9:25 AM CDT) HEMOGLOBIN A1C SCREENING 5.3 <=6.4 % 10/05/2023 3:40 PM CDT [facility] Blood BLOOD SPECIMEN / Unknown Venipuncture / Unknown 10/05/2023 9:25 AM CDT 10/05/2023 9:25 AM CDT [facility]ative [facility] - 10/05/2023 3:40 PM CDT ? (<5.7%) ?Normal ? (5.7% to 6.4%) ? Indicates prediabetes ? (>=6.5%) ? Confirms diabetes Falsely low levels may be seen with: Recent Transfusion, Recent Significant Blood Loss, Hemolytic Diseases, or Falsely elevated levels may be seen with: Untreated Anemias, Splenectomy Ashlie Devine MD CHEMISTRY Performing Organization Address City/[facility]/ZIP Co de Phone Number [facility] [address] [place] [address], * TSH WITH REFLEX (10/05/2023 9:25 AM CDT) TSH 1.79 0.27 - 4.20 uIU/mL 10/05/2023 6:07 PM CDT [facility] Blood BLOOD SPECIMEN / Unknown Venipuncture / Unknown 10/05/2023 9:25 AM CDT 10/05/2023 9:25 AM CDT Narrative [facility] - 10/05/2023 6:07 PM CDT In Adults, TSH values between 5.00 and 10.00 uIU/ml do not necessarily indicate the presence of Hypothyroidism. Correlation with clinical findings such as presence of goiter and/or Thyroperoxidase (TPO) Antibody may be helpful. For more information please refer to CALDERON 2004; 291: 228-238. Ashlie Devine MD CHEMISTRY Performing Organization Address City/[facility] Co de Phone Number [facility] [address] [place] [address], * ANTI HCV (10/05/2023 9:25 AM CDT) HEPATITIS C ANTIBODY Non-Reacti ve Non-React radha 10/05/2023 5:41 PM CDT [facility] Comment:Please note, per www .CDC.gov: If a patient is known to be at high risk of HCV infection, or is symptomatic, and the physician's suspicion of HCV infection is high, HCV RNA testing is often employed and is of diagnostic value, even after an initial negative anti-HCV test result. Blood BLOOD SPECIMEN / Unknown Venipuncture / Unknown 10/05/2023 9:25 AM CDT 10/05/2023 9:25 AM CDT Ashlie Devine MD SEND OUTS [facility] [address] [place] [address], * (ABNORMAL) CBC W PLT NO DIFF (10/05/2023 9:25 AM CDT) WHITE BLOOD COUNT 6.0 4.5 - 11.0 thou/cu mm 10/05/2023 10:39 AM CDT [facility] RED BLOOD COUNT 4.74 4.00 - 5.20 mil/cu mm 10/05/2023 10:39 AM CDT [facility] HEMOGLOBIN 13.8 12.0 - 16.0 g/dL 10/05/2023 10:39 AM CDT [facility] HEMATOCRIT 42.3 33.0 - 51.0 % 10/05/2023 10:39 AM CDT [facility] MCV 89 80 - 100 fL 10/05/2023 10:39 AM CDT [facility] MCH 29.1 26.0 - 34.0 pg 10/05/2023 10:39 AM CDT [facility] MCHC 32.6 32.0 - 36.0 g/dL 10/05/2023 10:39 AM CDT [facility] RDW 14.0 11.5 - 15.5 % 10/05/2023 10:39 AM CDT [facility] PLATELET COUNT 236 140 - 440 thou/cu mm 10/05/2023 10:39 AM CDT [facility] MPV 11.9(H) 6.5 - 11.0 fL 10/05/2023 10:39 AM CDT [facility] Blood BLOOD SPECIMEN / Unknown Venipuncture / Unknown 10/05/2023 9:25 AM CDT 10/05/2023 9:25 AM CDT Ashlie Devine MD HEMATOLOGY [facility] [address] [place] [address], * LIPID PANEL (10/05/2023 9:25 AM CDT) CHOLESTEROL,TOTAL 172 100 - 199 mg/dL 10/05/2023 6:07 PM CDT [facility] Comment: Cholesterol, Total Reference Ranges Desirable <200 mg/dL Borderline 200-239 mg/dL High >=240 mg/dL TRIGLYCERIDES 64 <150 mg/dL 10/05/2023 6:07 PM CDT [facility] HDL CHOLESTEROL 59 >40 mg/dL 6:07 PM CDT [facility] NON-HDL CHOLESTEROL 113 <145 mg/dl 10/05/2023 6:07 PM CDT [facility] CHOL/HDL RATIO 2.92 <4.50 10/05/2023 6:07 PM CDT [facility] LDL CHOLESTEROL 100 <=130 mg/dL 10/05/2023 6:07 PM T [facility] VLDL CHOLESTEROL 13 <=30 mg/dL 10/05/2023 6:07 PM CDT [facility] PROVIDER ORDERED STATUS FASTING 10/05/2023 6:07 PM T [facility] Blood BLOOD SPECIMEN / Unknown Venipuncture / Unknown 10/05/2023 9:25 AM CDT 10/05/2023 9:25 AM CDT Ashlie Devine MD CHEMISTRY [facility] [address] [place] [address], * (ABNORMAL) COMP METABOLIC PANEL (10/05/2023 9:25 AM CDT) SODIUM 141 136 - 145 mmol/L 10/05/2023 6:07 PM CDT [facility] POTASSIUM 4.6 3.5 - 5.1 mmol/L 10/05/2023 6:07 PM CDT [facility] CHLORIDE 107 98 - 107 mmol/L 10/05/2023 6:07 PM [facility] CO2,TOTAL 23 22 - 29 mmol/L 10/05/2023 6:07 PM [facility] ANION GAP 11 5 - 18 10/05/2023 6:07 PM [facility] GLUCOSE 84 70 - 99 mg/dL 10/05/2023 6:07 PM [facility] CALCIUM 9.6 8.6 - 10.0 mg/dL 10/05/2023 6:07 PM [facility] BUN 12 6 - 20 mg/dL 10/05/2023 6:07 PM [facility] CREATININE 0.81 0.50 - 0.90 mg/dL 10/05/2023 6:07 PM [facility] BUN/CREAT RATIO 15 10 - 20 6:07 PM [facility] eGFR >90 >90 mL/min/1.7 3m2 10/05/2023 6:07 PM [facility] Comment:As of 2021, eG FR is calculated by the CKD-EPI creatinine equation without race adjustment. ??eGFR can be influenced by muscle mass, exercise, and diet. ??The reported eGFR is an estimation only and is only applicable if the renal function is stable. ALBUMIN 4.8 4.0 - 4.9 g/dL 10/05/2023 6:07 PM [facility] PROTEIN,TOTAL 7.6 6.0 - 8.0 g/dL 10/05/2023 6:07 PM [facility] BILIRUBIN,TOTAL 0.4 0.0 - 1.2 mg/dL 10/05/2023 6:07 PM [facility] ALK PHOSPHATASE 83 35 - 104 IU/L 10/05/2023 6:07 PM [facility] ALT (SGPT) 9(L) 10 - 35 IU/L 10/05/2023 6:07 PM [facility] AST (SGOT) 18 10 - 35 IU/L 10/05/2023 6:07 PM CDT [facility] Blood BLOOD SPECIMEN / Unknown Venipuncture / Unknown 10/05/2023 9:25 AM CDT 10/05/2023 9:25 AM CDT Ashlie Devine MD CHEMISTRY [facility] [address] [place] [address], * DIRECTOR NON PROFIT THIN PREP PAP SCREEN IMAGED [[id number]] (09/27/2019 2:00 PM CDT) Case Report Gynecologic Cytology Report ? Case: [id number] ? Authorizing Provider: ??Ashlie Devine MD ?? Collected: ? 09/27/2019 1400 ? Ordering Location: ? [facility] Received: ?09/27/2019 1438 ? First Screen: ?Henrique, Malika ? Specimen: ?DIRECTOR NON PROFIT ThinPrep Vial Screening, Cervical ? 10/07/2019 11:51 AM CDT [facility] ENTRAL LABORATORY INTERPRETATION/ RESULT NEGATIVE FOR INTRAEPITHELIAL LESION OR MALIGNANCY (NIL) (none) 10/07/2019 11:51 AM CDT [facility] ENTRIN LABORATORY IMEN ADEQUACY Satisfactory for evaluation No endocervical component seen 10/07/2019 11:51 AM CDT [facility] HPV REQUEST HPV and PAP 10/07/2019 11:51 AM CDT [facility] Date of LMP 09/11/2019 10/07/2019 11:51 AM CDT [facility] Last Pap Date 09/16/16 10/07/2019 11:51 AM CDT [facility] Last Pap Result NIL 0 11:51 AM CDT [facility] EN[facility] Abnormal Pap or [place] Bx in last 5 years No 10/07/2019 11:51 AM CDT [facility] Menstrual Status Regular Periods 10/07/2019 11:51 AM CDT [facility] EN[facility] [place] Bx Done Today No 10/07/2019 11:51 AM CDT [facility] Additional Information None given 10/07/2019 11:51 AM CDT [facility] Comment: Cytology is screened at [facility] - [address], [place] [address] and [facility] - [address] [place] [address] and [facility] - [address] [place] [address] Interpreted at [facility] - [address], [place] [address] Automated Review Successful 10/07/2019 11:51 AM CDT [facility] EN[facility] Comment:Specimen processed s uccessfully by automated vendor management specialist device, ThinPrep Imaging System, [employer] ANCILLARY TESTING DIRECTOR NON PROFIT HPV Ordered, Please see separate report 10/07/2019 11:51 AM CDT [facility] ENTR[facility] Note The pap test is a screening technique, not a diagnostic procedure. It is used primarily to screen for squamous cancers and precursor lesions. Published studies have shown that it is subject to both false negative and false positive results. The pap test should not be used as the sole means to diagnose or exclude pre-malignant and malignant lesions. 10/07/2019 11:51 AM CDT [facility] LAB[facility]-C ENTRAL LABORATORY Other (Cervical) Non-Blood / Unknown 09/27/2019 2:00 PM CDT 09/27/2019 2:38 PM CDT Ashlie Devine MD PATHOLOGY/CYTOLOG Y [facility] [address] [place] [address], * ANTI HIV 1/2 (08/17/2017 10:25 AM CDT) HIV-1/HIV-2 ANTIBODY Non-Reacti ve Non-Reacti ve 08/17/2017 6:37 PM CDT [facility] Comment:HIV-1 p24 and HIV-1/ HIV-2 Ab not detected. Blood BLOOD SPECIMEN / Unknown Butterfly / Unknown 08/17/2017 10:25 AM CDT 08/17/2017 10:25 AM CDT Vic Jessica MD SEND OUTS [facility] [address] [place] [address], from Last 3 Months or Most Recently Relevant to Health Maintenance Advance Directives * Full Code (Latest Code Status on File) Date Activated Date Inactivated Comments 03/20/2018 2:26 PM 03/26/2018 3:44 PM Care Teams Aws Consultant Relationship Specialty Start Date End Date Ashlie Devine MD [address] [place] [address] PCP - General Family Practice 06/20/14 Vic Jessica MD [address] [place] [address] [address] Family Practice Family Practice 08/17/17
[2023-11-21 07:02] VITALS: BMI 27.4
--- NOTE | 2023-11-21 07:19 | W.PM.H&PU ---
History & Physical Update History & Physical Update H&P Reviewed and patient assessed: No changes noted H&P Updates: Ms. Oneill is seen in pre-op prior to planned suction D&C in the setting of missed . No interval change to her health history or questions today. We reviewed the risks, benefits and alternatives to the planned procedure. Risks reviewed included bleeding, infection, damage to surrounding structures, retained POC, intrauterine synechiae postprocedure. Written consent was signed. Post-procedure restrictions and expectations reviewed. Pre-op labs reviewed and are within normal limits. Doxycycline is ordered for perioperative antibiotic prophylaxis. BT O+, rhogam not indicated.
[2023-11-21 07:30] LABS: Hemoglobin* 12.2 gm/dL (12.0-16.0)
[2023-11-21] MEDS: DOXYCYCLINE HYCLATE 200 MG in 0.9 % SODIUM CHLORIDE 250 ml 250 ML 250 MG IVPB (07:34)
[2023-11-21] MEDS: LACTATED RINGERS 1000 ML 1,000 ML 100 ML IV (07:34)
[2023-11-21] MEDS: SODIUM CHLORIDE 0.9 % (FLUSH) 10 ML SYRINGE IVF (07:34)
[2023-11-21 07:36] VITALS: BP 112/77; PULSE 69; RESP 16; TEMP 36.8; O2SAT 99
[2023-11-21] MEDS: BUPIVACAINE 0.5% 30 ML INJECTION (08:32)
--- NOTE | 2023-11-21 08:50 | W.PM.GYNPROC ---
Procedure Note Time Seen by Provider: 08:58 Date of procedure: 11/21/23 Will [facility] bill your pro fee for this procedure?: Yes Pre-op diagnosis: Missed Procedure: Suction dilation and curettage Anesthesia: MAC and local Complications: None Surgeon: Redd Chaudhry MD Estimated blood loss (mL): 25 IV fluids (mL): 900 Urine Output (mL): 10 Pathology: specimen obtained, sent to pathology Condition: stable Disposition: same day Findings: Retroverted uterus Post-procedure TAUS confirms evacuation of POC with thin endometrial stripe Procedure Description: After verifying written informed consent, the patient was taken to the operating room. A time-out was completed to verify correct patient and procedure. Anesthesia was induced and found to be adequate. She was placed in the dorsal lithotomy position in yellowfin stirrups with care taken to avoid neurologic injury. She did receive a preoperative dose of doxycycline per protocol. She was prepared and draped in the usual sterile fashion. A surgical pause was conducted to confirm correct patient and procedure. TAUS was performed, revealing retroverted uterus with intrauterine gestational sac visualized consistent with known missed . Speculum was inserted, the cervix was identified and grasped with an Allis. A paracervical block was applied with 0.5% bupivicaine, total 20mL. The cervix was serially dilated to accommodate a No. 7 curved curette. The curette was then introduced and advanced to the fundus. The intrauterine contents were aspirated until there was no further return of tissue, across 3 passes. Following this, a gentle curettage was performed with the flexible plastic curette where gritty sensation was noted throughout the uterine cavity. One additional pass was made with the suction curette with no tissue return. Transabdominal ultrasound was performed documenting a thin, uniform endometrial stripe. Allis was removed from the cervix. Cervix was made hemostatic with pressure with a sponge stick. Sponge and instrument count was correct. Surgical debrief was completed. Products of conception were submitted to pathology, no cytogenetic testing. The patient was transferred to the recovery room in excellent condition.
[2023-11-21 08:55] VITALS: BP 85/52; PULSE 69; RESP 16; TEMP 36.3; O2SAT 100
[2023-11-21 09:00] VITALS: BP 106/71; PULSE 69; RESP 16; O2SAT 100
--- NOTE | 2023-11-21 09:00 | W.ANESCHARGE ---
Anesthesia Charges Start Date/Time Anesthesia Start Date: 11/21/23 Anesthesia Start Time: 08:10 Stop Date/Time Anesthesia Stop Date: 11/21/23 Anesthesia Stop Time: 08:56
[2023-11-21 09:15] VITALS: BP 98/65; PULSE 69; RESP 16; O2SAT 100
[2023-11-21] MEDS: ACETAMINOPHEN 500 MG TABLET 1000 MG PO (09:22)
[2023-11-21] MEDS: hydrOXYzine pamoate 25 MG CAPSULE PO (09:22)
[2023-11-21 09:30] VITALS: BP 102/62; PULSE 57; RESP 16; O2SAT 100
--- NOTE | 2023-11-21 09:42 | W.ANESCHARGE ---
Anesthesia Charges Start Date/Time Anesthesia Start Date: 11/21/23 Anesthesia Start Time: 08:10 Stop Date/Time Anesthesia Stop Date: 11/21/23 Anesthesia Stop Time: 08:56
== END 2023-11-21 09:54 | disposition home or self-care (01) ==
PROVIDERS: PCP Family Medicine; Visit Provider Obstetrics & Gynecology
PROC: (CPT 59820; principal; 2023-11-21 08:05)
DX: O02.1 Missed abortion (principal)
CPT/HCPCS: 59820; 00940; 01965; 36415; 85018; 86850; 86900; 86901; 88305; A9270; J0665; J1885; J2250; J2405; J2704; J3010; J7050; J7120

== ENCOUNTER 2024-01-22 08:07 | Outpatient (CLI) | payer BC, SELFPAY ==
--- OUTSIDE RECORDS SUMMARY | 2024-01-22 08:09 | XMS_ITS | Clinical Summary ---
Author Organization [employer] Address [place], [place] [address] Care Team Providers Care Mule Tender Name Role Phone Ashlie Devine MD Primary Care Provider [phone] Vic Jessica MD Unavailable [phone] Allergies Active Allergy Reactions Criticality Noted Date [...] Resolved Date Delivery outcome of single liveborn infant 03/23/2018 03/24/2018 Arrest of descent, delivered , [...] MD - Please call for delivery Sex/Name: [place]! FOB: Aki Dating based on: 7 week [...] Encounters Date Type Department Care Team Description 11/21/2023 Lab Requisition [facility] [phone] Yeimi Chaudhry MD 11/17/2023 Orders Only [facility] Scanner 1 scan: (1-Ord) [facility] OB TRANSVAGINAL , 11/17/2023 11/02/2023 Orders Only [facility] Scanner 1 scan: (1-Ord) [facility] OB TRANSVAG[facility]AL, 11/02/2023 from Last 3 Months Immunizations Name Administration Dates Next Due AMB Influenza, IIV4 PF (=>6 mos Flulaval,Fluzone Fluarix)(Flu Clinic Only) 12/03/2019 COVID-19 vaccine (Moderna 100mcg/0.5mL) PF MDV 05/14/2020,04/09/2020 COVID-19 vaccine ([employer]-Bio NTech 30mcg/0.3mL) 12YO+ ROCKY-SUCROSE PF, MDV 03/09/2021 DTaP 10/14/1993, 1,07/22/1988,05/20,03/17/1988 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 0 10/04/2023 Financial Resource Strain Answer Date R ecorded Difficulty of Paying Living Expenses 3 10/04/2023 Difficulty of Paying Living Expenses Not on file 10/04/2023 Food Insecurity Answer Date Recorded Do you worry your food will run out before you are able to buy more? 1 10/04/2023 Transportation Needs Answer Date Record ed Does lack of transportation keep you from medica l appointments? 1 10/04/2023 Does lack of transportation keep you from work, meetings or getting things that you need? 1 10/04/2023 Housing Stability Answer Date Recorded What is your housing situation today? 1 10/04/2023 Sex and Gender Information Value [...] M CS-LTr anv Epidu ral,S sulma N Livin g Dr. Cory rodriguez /Rivas burton Complications:Failure to Pro aisha in Second Stage,Arrest of descent, delivered, current hospitalization Delivery Location:[facility] Comments:induced at 36 2/7 for PROM , [...] Procedure Name Priority Date/Time Associated Diagnosis Comments LAB TRACKING EVENT Routine 11/21/2023 8: 37 AM CDT PATH TISSUE EXAM Routine 11/21/2023 8:35 AM CDT SCAN-ULTRASOUND REPORT 11/17/2023 12:00 AM CDT SCAN-ULTRASOUND REPORT 11/02/2023 12:00 AM CDT ANTI HCV Routine 10/05/2023 9:25 AM CDT Need for hepatitis C screening test CHHA THIN PREP PAP SCREEN IMAGED Routine 09/27/2019 2:00 PM CDT Screening for cervical cancer ANTI HIV 1/2 Routine 08/17/2017 10:25 AM CDT Encounter for supervision of normal , antepartum, unspecified from Last 3 Months or Most Recently Relevant to Health Maintenance Results * LAB TRACKING EVENT (11/21/2023 8:37 AM CDT) Other (Other) Client Collect / Unknown 11/21/2023 8:37 AM CDT 11/21/2023 2:02 PM CDT Yeimi Chaudhry MD LAB BILL ONLY [facility] [address] [place] [id number], * PATH TISSUE EXAM (11/21/2023 8:35 AM CDT) Case Report Pathology Report ?Case: [id number] ? Authorizing Provider: ??Yeimi Chaudhry MD ??Collected: ? 11/21/2023 0835 ? Ordering Location: ? [facility] ?Received: ?11/21/2023 1448 ? Pathologist: ? Andrea Robbins MD ? Specimen: ?Products of Conception ? 11/23/2023 10:18 AM CDT [facility] Final Diagnosis A) UTERINE CONTENTS, CURETTAGE: 1. Decidua, placental implantation site and immature chorionic villi consistent with intrauterine products of conception 2. Negative for somatic tissue, grossly and microscopically 3. Negative for abnormal trophoblastic proliferation and malignancy 11/23/2023 10:[address] [facility] Clinical Information Missed 11/23/2023 10:[address] [facility] Gross Description A) Received in formalin, labeled with the patient's name and products of conception, is a 4.0 x 3.3 x 1.2 cm aggregate of hemorrhagic, castillo fibromembranous tissues admixed with chorionic villi. ??No somatic tissue or hydropic villi are identified. Certified Fire Investigator sections are submitted in five cassettes. KMN 11/21/2023 11/23/2023 10:[address] [facility] Microscopic Description The final diagnosis is based on microscopic examination of appropriate sections of all specimens. 11/23/2023 10:[address] [facility] Additional Information Interpreted at [facility] - [address], [place] [address] 11/23/2023 10:[address] [facility] Other (Products of Conception) 11/21/2023 8:35 AM CDT 11/21/2023 2:48 PM CDT Yeimi Chaudhyr MD PATHOLOGY/CYTOLO [facility] [address] [place] [address], * SCAN-ULTRASOUND REPORT (11/17/2023 12:00 AM CDT) Only the most recent of2 resultswithin the time period is included. Anatomical Region Laterality Modality Other Scanner OTHER * ANTI HCV (10/05/2023 9:25 AM CDT) Pathologist [facility] HEPATITIS C ANTIBODY Non-Reacti ve Non-React radha 10/05/2023 5:41 PM CDT [facility] Comment:Please note, per www .CDC.gov: [...] AM CDT Ashlie Devine MD SEND OUTS [facility] [address] [place] [address], * CHHA THIN PREP PAP SCREEN IMAGED [[id number]] (09/27/2019 2:00 PM CDT) [facility] Case Report Gynecologic Cytology Report ? Case: [id number] ? Authorizing Provider: ??Ashlie Devine MD ?? Collected: ? 09/27/2019 1400 ? Ordering Location: ? [facility] Received: ?09/27/2019 1438 ? First Screen: ?Malika Duenas ? Specimen: ?CHHA ThinPrep Vial Screening, Cervical ? 10/07/2019 11:51 AM CDT [facility] [employer] [facility] ENTRAL LABORAT[facility] INTERPRETATION/ RESULT NEGATIVE FOR INTRAEPITHELIAL LESION OR MALIGNANCY (NIL) (none) 10/07/2019 11:51 AM CDT [facility] IMEN ADEQUACY Satisfactory for evaluation No endocervical component seen 10/07/2019 11:51 AM CDT [facility] [employer] [facility] ENTRAL LABORATORY HPV REQUEST HPV and PAP 10/07/2019 11:51 AM CDT [facility] Date of LMP 09/11/2019 10/07/2019 11:51 AM CDT [facility] Last Pap Date 09/16/16 10/07/2019 11:51 AM CDT [facility] Last Pap Result NIL 0 11:51 AM CDT [facility] Abnormal Pap or [place] Bx in last 5 years No 10/07/2019 11:51 AM CDT [facility] Menstrual Status Regular Periods 10/07/2019 11:51 AM CDT [facility] [place] Bx Done Today No 10/07/2019 11:51 AM CDT [facility] Additional Information None given 10/07/2019 11:51 AM CDT [facility] Comment: Cytology is screened at [facility] Central Laboratory - [address], [place] [address] and [facility] - [address], [place] [address] and [facility] - [address] [place] [address] Interpreted at [facility] - [address], [place] [address] Automated Review Successful 10/07/2019 11:51 AM CDT [facility] Comment:Specimen processed s uccessfully by automated international controller device, ThinPrep Imaging System, [employer] ANCILLARY TESTING CHHA HPV Ordered, Please see separate report 10/07/2019 11:51 AM CDT [facility] [employer] [facility] ENTRAL LABORATORY Note The pap [...] and malignant lesions. 10/07/2019 11:51 AM CDT [facility] [employer] [facility] ENTRAL LABORAT[facility] Other (Cervical) Non-Blood / Unknown 09/27/2019 2:00 PM CDT 09/27/2019 2:38 PM CDT Ashlie Devine MD PATHOLOGY/CYTOLOG Y [facility] [address] [place] [address], [place] * ANTI HIV 1/2 (08/17/2017 10:25 AM CDT) HIV-1/HIV-2 ANTIBODY Non-Reacti ve Non-Reacti ve 08/17/2017 6:37 PM CDT [facility] [employer] [facility] TR[facility] LAB[facility]ATORY Comment:HIV-1 p24 and HIV-1/ HIV-2 Ab not detected. Blood BLOOD SPECIMEN / Unknown Butterfly / Unknown 08/17/2017 10:25 AM CDT 08/17/2017 10:25 AM CDT Vic Jessica MD SEND OUTS [facility] [address] [place] [address], from Last 3 Months or Most Recently Relevant to Health Maintenance Advance Directives * Full Code (Latest Code Status on File) Date Activated Date Inactivated Comments 03/20/2018 2:26 PM 03/26/2018 3:44 PM Care Teams Mule Tender Relationship Specialty Start Date End Date Ashlie Devine MD [address] [place] [address] PCP - General Family Practice 06/20/14 Vic Jessica MD [address] [place] [address] Family Practice Family Practice 08/17/17
--- OUTSIDE RECORDS SUMMARY | 2024-01-22 08:09 | XMS_ITS | Referral Summary ---
Author Organization [employer] Address [address] [place] [address] Care Team Providers Care Events And Promotions Assistant Name Role Phone No Ref-Primary, Physician Primary Care Provider Allergies Active Allergy Reactions Criticality Noted Date Comments Loratadine Hives 07/07/2021 Penicillins Hives 07/07/2021 Social History Tobacco Use Types Packs/Day Years Used Date Smoking Tobacco: Never Assessed Adolescent Education Answer Date Record ed Getting School Help Needed Not on file 11/26 Comments No Sex and Gender Information Value Date Recorded Sex Assigned at Not on file Legal Sex Female 10:40 AM CDT Gender Identity Not on file Sexual Orientation [...] includes age and gender (Jean et al., NEJM, DOI: 10.1056/FRTPha5007215) Blood BLOOD SPECIMEN / Unknown Venipuncture / Unknown 07/07/2021 11:50 AM CDT 07/07/2021 11:57 AM CDT Chris Coyle MD LAB - BLOOD ORDERABLES Final Result [facility] [address] Lab (1st floor, no room number) [place] [address], [facility] [phone] from Last 3 Months or Most Recently Relevant to Health Maintenance Insurance [employer] OUT OF STATE Care Teams Events And Promotions Assistant Relationship Specialty Start Date End Date No Ref-Primary, Physician PCP - General 07/07/21
--- OUTSIDE RECORDS SUMMARY | 2024-01-22 08:09 | XMS_ITS | Clinical Summary ---
Author Organization [employer] Address [address] [place] [address] Care Team Providers Care Automatic Cigar Wrapper Tender Name Role Phone No Ref-Primary, Physician Primary [...] (once per calendar year) 2023 COVID-19 Vaccine (4 - 2023- season) 2023 03/09/2021, 05/14/2020, 04/09/2020 INFLUENZA VACCINE (#1) 2023 , 12/03/2019, 03/01/2019, Additional history exists GLUCOSE 07/07/2024 07/07/2021 DTAP/TDAP/TD IMMUNIZATION (8 - Td or Tdap) 01/30/2028 01/29/2018, 06/05/2009, 12/29/1999, Additional history exists RSV VACCINE (1 - 1-dose 75+ series) 12/29/2062 HEPATITIS B IMMUNIZATION Completed 001, 08/04/2000, 07/11/2000 [...] and gender (Jean et al., NEJM, DOI: 10.1056/VKOPuv1731393) Blood BLOOD SPECIMEN / Unknown Venipuncture / Unknown 07/07/2021 11:50 AM CDT 07/07/2021 11:57 AM CDT us Chris Coyle MD LAB - BLOOD ORDERABLES Final Result [facility] [address] Lab (1st floor, no room number) [place] [address], [facility] [phone] from Last 3 Months or Most Recently Relevant to Health Maintenance Insurance [facility] OUT OF STATE Care Teams Automatic Cigar Wrapper Tender Relationship Specialty Start Date End Date No Ref-Primary, Physician PCP - General 07/07/21
== END 2024-01-22 08:08 | disposition home or self-care (01) ==
LOC: NFLDREF 08:07
PROVIDERS: PCP Family Medicine; Visit Provider Obstetrics & Gynecology
DX: O20.9 Hemorrhage in early pregnancy, unspecified (principal); N96 Recurrent pregnancy loss
CPT/HCPCS: 84702

== ENCOUNTER 2024-01-24 13:35 | Outpatient (CLI) | payer BC, SELFPAY ==
--- OUTSIDE RECORDS SUMMARY | 2024-01-28 03:00 | XMS_ITS | Clinical Summary ---
Author Organization [employer] Address [place], [place] [address] Care Team Providers Care Glove Pairer Name Role Phone Ashlie Devine MD Primary Care Provider [phone] Vic Jessica MD Unavailable [phone] Allergies Active Allergy Reactions Criticality Noted Date [...] MD - Please call for delivery Sex/Name: [place]! FOB: Aki Dating based on: 7 week [...] Department Care Team Description 11/21/2023 Lab Requisition [facility] [phone] Yeimi Chaudhry MD 11/17/2023 Orders Only [facility] Scanner 1 scan: (1-Ord) [facility] OB TRANSVAGINAL , 11/17/2023 11/02/2023 Orders Only [facility] Scanner 1 scan: (1-Ord) [facility] OB TRANSVAGINAL, 11/02/2023 from Last 3 Months Immunizations Name Administration Dates Next Due AMB Influenza, IIV4 PF (=>6 mos Flulaval,Fluzone Fluarix)(Flu Clinic Only) 12/03/2019 COVID-19 vaccine (Moderna 100mcg/0.5mL) PF MDV 05/14/2020,04/09/2020 COVID-19 vaccine ([employer]-Bio NTech 30mcg/0.3mL) 12YO+ ROCKY-SUCROSE PF, MDV 03/09/2021 [...] Health Mother dayana still Snoring Mother dayana tsill Cancer Paternal Grandfather throat/ throat Mental illness [...] Stage,Arrest of descent, delivered, current hospitalization Delivery Location:[facility] Comments:induced at 36 2/7 for PROM , arrest descent 3 days later 022 SAB SPONTA NEOUS 10/2021 SAB SPONTA NEOUS 12/2021 SAB SPONTA NEOUS Last Filed Vital Signs Vital Sign Reading Time Taken Comments Blood Pressure 98/62 10/05/2023 8:30 AM CDT Pulse 78 10/05/2023 8:30 AM CDT Temperature 36.6 C (97.8 F) 06/08/2022 2:39 PM CDT Respiratory Rate 16 09/30/2020 9:52 AM CDT [...] CDT Need for hepatitis C screening test CNS THIN PREP PAP SCREEN IMAGED Routine 09/27/2019 [...] CDT Yeimi Chaudhry MD LAB BILL ONLY [facility] [address] [place] [address], * PATH TISSUE EXAM (11/21/2023 8:35 AM CDT) Case Report Pathology Report Case: [id number] Authorizing Provider: Yeimi Chaudhry MD Collected: 11/21/2023 0835 Ordering Location: [facility] Received: 11/21/2023 1448 Pathologist: Andrea Robbins MD Specimen: Products of Conception 11/23/2023 10:18 AM CDT [facility] Final Diagnosis A) UTERINE CONTENTS, CURETTAGE: 1. Decidua, placental implantation site and immature chorionic villi consistent with intrauterine products of conception 2. Negative for somatic tissue, grossly and microscopically 3. Negative for abnormal trophoblastic proliferation and malignancy 11/23/2023 10:18 AM CDT [facility] ENTRAL LABORATORY Clinical Information Missed 11/23/2023 10:18 AM CDT [facility] ENTRAL LABORATORY Gross Description A) Received in formalin, labeled with the patient's name and products of conception, is a 4.0 x 3.3 x 1.2 cm aggregate of hemorrhagic, castillo fibromembranous tissues admixed with chorionic villi. No somatic tissue or hydropic villi are identified. Data Warehousing Specialist sections are submitted in five cassettes. KMN 11/21/2023 11/23/2023 10:18 AM CDT [facility] ENTRAL LABORATORY Microscopic Description The final diagnosis is based on microscopic examination of appropriate sections of all specimens. 11/23/2023 10:18 AM CDT [facility] [employer] LABORATORY-C ENTRAL LABORATORY Additional Information Interpreted at [facility], Central Laboratory - [address], [place] [address] 11/23/2023 10:18 AM CDT [facility]- ENTRAL LABORATORY Other (Products of Conception) 11/21/2023 8:35 AM CDT 11/21/2023 2:48 PM CDT Yeimi Chaudhry MD PATHOLOGY/CYTOLO GY Performing Organization Address [facility]/ZIP Co de Phone Number [facility] [address] [place] [address], [place] * SCAN-ULTRASOUND REPORT (11/17/2023 12:00 AM CDT) Only the most recent of2 resultswithin the time period is included. Anatomical Region Laterality Modality Other Scanner OTHER * ANTI HCV (10/05/2023 9:25 AM CDT) HEPATITIS C ANTIBODY Non-Reacti ve Non-React radha 10/05/2023 5:41 PM CDT [facility] [employer] [facility] TRAL LABORATORY Comment:Please note, per www [...] AM CDT Ashlie Devine MD SEND OUTS Performing Organization Address [facility]/ZIP Co de Phone Number [facility] [address] [place] [address], [place] * CNS THIN PREP PAP SCREEN IMAGED [[id number]] (09/27/2019 2:00 PM CDT) Case Report Gynecologic Cytology Report Case: [id number] Authorizing Provider: Ashlie Devine MD Collected: 09/27/2019 1400 Ordering Location: [facility] Received: 09/27/2019 1438 First Screen: Malika Duenas Specimen: CNS ThinPrep Vial Screening, Cervical 10/07/2019 11:51 AM CDT [facility] INTERPRETATION/ RESULT NEGATIVE FOR INTRAEPITHELIAL LESION OR MALIGNANCY (NIL) (none) 10/07/2019 11:51 AM CDT [facility] [employer] [facility] ENTRAL LABORATORY IMEN ADEQUACY Satisfactory for evaluation No endocervical component seen 10/07/2019 11:51 AM CDT [employer] ENTRAL LABORATORY HPV REQUEST HPV and PAP 10/07/2019 11:51 AM CDT [facility] Date of LMP 09/11/2019 10/07/2019 11:51 AM CDT [facility] [employer] ENTRAL LABORATORY Last Pap Date 09/16/16 10/07/2019 11:51 AM CDT [facility] [employer] [facility]- ENTRAL LABORATORY Last Pap Result NIL 0 11:51 AM CDT [facility] [employer] [facility]- ENTRAL LABORATORY Abnormal Pap or [place] Bx in last 5 years No 10/07/2019 11:51 AM CDT [facility] [employer] [facility] ENTRAL LABORATORY Menstrual Status Regular Periods 10/07/2019 11:51 AM CDT [facility] [employer] [facility] ENTRAL LABORATORY [place] Bx Done Today No 10/07/2019 11:51 AM CDT [facility] [employer] [facility] ENTRAL LAB[facility] Additional Information None given 10/07/2019 11:51 AM CDT [facility] [employer] [facility] ENTRAL LABORATORY Comment: Cytology is screened at [employer] [facility], Central Laboratory - [address], [place] [address] and [facility] - [address] [place] [address], [place] [address] and [facility] Laboratory - [address] [place] [address] Interpreted at [employer] [facility], Central Laboratory - [address], [place] [address] Automated Review Successful 10/07/2019 11:51 AM CDT [facility] [employer] [facility] ENTRAL LABORATORY Comment:Specimen processed s uccessfully by automated manager radio device, ThinPrep Imaging System, [employer] ANCILLARY TESTING CNS HPV Ordered, Please see separate report 10/07/2019 11:51 AM CDT [facility] [employer] [facility] ENTRAL LABORAT[facility] Note The pap test is [...] and malignant lesions. 10/07/2019 11:51 AM CDT [facility] [employer] [facility]- ENTRAL LABORATORY Other (Cervical) Non-Blood / Unknown 09/27/2019 2:00 PM CDT 09/27/2019 2:38 PM CDT Ashlie Devine MD PATHOLOGY/CYTOLOG Y [facility] [address] [place] [address], [place] * ANTI HIV 1/2 (08/17/2017 10:25 AM CDT) HIV-1/HIV-2 ANTIBODY Non-Reacti ve Non-Reacti ve 08/17/2017 6:37 PM CDT [facility] [employer] [facility] TRAL LABORATORY Comment:HIV-1 p24 and HIV-1/ HIV-2 Ab not detected. Blood BLOOD SPECIMEN / Unknown Butterfly / Unknown 08/17/2017 10:25 AM CDT 08/17/2017 10:25 AM CDT Vic Jessica MD SEND OUTS [facility] [address] [place] [address], from Last 3 Months or Most Recently Relevant to Health Maintenance Advance Directives * Full Code (Latest Code Status on File) Date Activated Date Inactivated Comments 03/20/2018 2:26 PM 03/26/2018 3:44 PM Care Teams Glove Pairer Relationship Specialty Start Date End Date Ashlie Devine MD [address] [place] [address] PCP - General Family Practice 06/20/14 Vic Jessica MD [address] [place] [address] Family Practice Family Practice 08/17/17
--- OUTSIDE RECORDS SUMMARY | 2024-01-28 03:00 | XMS_ITS | Referral Summary ---
Author Organization [place] Address [address] [place] [address] Care Team Providers Care Hospital Cleaning Specialist Name Role Phone No Ref-Primary, Physician Primary [...] 69 07/07/2021 3:00 PM CDT Temperature 36.5 C (97.7 F) 07/07/2021 10:46 AM CDT Respiratory Rate 18 07/07/2021 10:46 AM CDT [...] Comprehensive metabolic panel (07/07/2021 11:50 AM CDT) [facility] Signature Sodium 138 133 - 144 mmol/L 07/07/2021 [...] and gender (Jean goel al., NEJM, DOI: 10.1056/[id number]) Blood BLOOD SPECIMEN / Unknown Venipuncture / Unknown 07/07/2021 11:50 AM CDT 07/07/2021 11:57 AM CDT us Chris Coyle MD LAB - BLOOD ORDERABLES Final Result [facility] Acute Care Lab [address] Lab (1st floor, no room number) [place] [address], [facility] [phone] from Last 3 Months or Most Recently Relevant to Health Maintenance Insurance [facility] OUT OF STATE Care Teams Hospital Cleaning Specialist Relationship Specialty Start Date End Date No Ref-Primary, Physician PCP - General 07/07/21
--- OUTSIDE RECORDS SUMMARY | 2024-01-28 03:00 | XMS_ITS | Clinical Summary ---
Author Organization [place] Address [address] [place] [address] Care Team Providers Care Distributor Cleaner Name Role Phone No Ref-Primary, Physician Primary [...] calendar year) 2023 COVID-19 Vaccine (4 - season) 2023 03/09/2021, 05/14/2020, 04/09/2020 INFLUENZA VACCINE [...] and gender (Jean et al., NEJM, DOI: 10.1056/[id number]) Blood BLOOD SPECIMEN / Unknown Venipuncture / Unknown 07/07/2021 11:50 AM CDT 07/07/2021 11:57 AM CDT us Chris Coyle MD LAB - BLOOD ORDERABLES Final Result LABORATORY [facility] Acute Care Lab [address] Lab (1st floor, no room number) [place] [address], [place] [phone] from Last 3 Months or Most Recently Relevant to Health Maintenance Insurance [facility] OUT OF STATE Care Teams Distributor Cleaner Relationship Specialty Start Date End Date No Ref-Primary, Physician PCP - General 07/07/21
== END 2024-01-24 13:36 | disposition home or self-care (01) ==
LOC: NFLDREF 01-28 02:58
PROVIDERS: PCP Family Medicine; Referring Provider Family Medicine; Visit Provider Obstetrics & Gynecology
DX: N96 Recurrent pregnancy loss (principal)
CPT/HCPCS: 84702

== ENCOUNTER 2024-01-31 08:52 | Outpatient (CLI) | payer BC, SELFPAY ==
--- OUTSIDE RECORDS SUMMARY | 2024-02-02 11:07 | XMS_ITS | Clinical Summary ---
Author Organization [place] Address [address] [place] [address] Care Team Providers Care Manufacturing Process Engineer Name Role Phone No Ref-Primary, Physician Primary [...] and gender (Jean et al., NEJM, DOI: 10.1056/[id number]) Blood BLOOD SPECIMEN / Unknown Venipuncture / Unknown 07/07/2021 11:50 AM CDT 07/07/2021 11:57 AM CDT us Chris Coyle MD LAB - BLOOD ORDERABLES Final Result LABORATORY [facility] Acute Care Lab [address] Lab (1st floor, no room number) [place] [address], [place] [phone] from Last 3 Months or Most Recently Relevant to Health Maintenance Insurance [facility] OUT OF STATE Care Teams Manufacturing Process Engineer Relationship Specialty Start Date End Date No Ref-Primary, Physician PCP - General 07/07/21
--- OUTSIDE RECORDS SUMMARY | 2024-02-02 11:07 | XMS_ITS | Clinical Summary ---
Author Organization [facility] Address [place], [place] [address] Care Team Providers Care Occupational Therapy Co Director Name Role Phone Ashlie Devine MD Primary Care Provider [phone] Vic Jessica MD Unavailable [phone] Allergies Active Allergy Reactions Criticality Noted Date [...] MD - Please call for delivery Sex/Name: [place]! FOB: Aki Dating based on: 7 week [...] Department Care Team Description 11/21/2023 Lab Requisition [facility] [phone] Yeimi Chaudhry MD 11/17/2023 Orders Only [facility] Scanner 1 scan: (1-Ord) [facility] OB TRANSVAGINAL , 11/17/2023 11/02/2023 Orders Only [facility] Scanner 1 scan: (1-Ord) [facility] OB TRANSVAGINAL, 11/02/2023 from Last 3 Months Immunizations Name Administration Dates Next Due AMB Influenza, IIV4 PF (=>6 mos Flulaval,Fluzone Fluarix)(Flu Clinic Only) 12/03/2019 COVID-19 vaccine (Moderna 100mcg/0.5mL) PF MDV 05/14/2020,04/09/2020 COVID-19 vaccine (BoardBookit-Bio NTech 30mcg/0.3mL) 12YO+ ROCKY-SUCROSE PF, MDV 03/09/2021 [...] Stage,Arrest of descent, delivered, current hospitalization Delivery Location:[facility] Comments:induced at 36 2/7 for PROM [...] CDT Need for hepatitis C screening test CONTAINER REPAIRER THIN PREP PAP SCREEN IMAGED Routine 09/27/2019 [...] CDT Yeimi Chaudhry MD LAB [facility] [address] [place] [address], * PATH TISSUE EXAM (11/21/2023 8:35 AM CDT) Case Report Pathology Report Case: [id number] Authorizing Provider: Yeimi Chaudhry MD Collected: 11/21/2023 0835 Ordering Location: [facility] Received: 11/21/2023 1448 Pathologist: Andrea Robbins MD Specimen: Products of Conception 11/23/2023 10:18 AM CDT [facility] Final Diagnosis A) UTERINE CONTENTS, CURETTAGE: 1. Decidua, placental implantation site and immature chorionic villi consistent with intrauterine products of conception 2. Negative for somatic tissue, grossly and microscopically 3. Negative for abnormal trophoblastic proliferation and malignancy 11/23/2023 10:18 AM CDT [facility] ENTRAL LABORATORY Clinical Information Missed 11/23/2023 10:18 AM CDT [facility] EN[facility] LABORATORY Gross Description A) Received in formalin, labeled with the patient's name and products of conception, is a 4.0 x 3.3 x 1.2 cm aggregate of hemorrhagic, castillo fibromembranous tissues admixed with chorionic villi. No somatic tissue or hydropic villi are identified. Cabbage [place]ter sections are submitted in five cassettes. KMN 11/21/2023 11/23/2023 10:18 AM CDT [facility] ENTRAL LABORATORY Microscopic Description The final diagnosis is based on microscopic examination of appropriate sections of all specimens. 11/23/2023 10:18 AM CDT [facility] LABORATORY-C ENTRAL LABORATORY Additional Information Interpreted at [facility], Central Laboratory - [address], [place] [address] 11/23/2023 10:18 AM CDT [facility]- ENTRAL LABORATORY Other (Products of Conception) 11/21/2023 8:35 AM CDT 11/21/2023 2:48 PM CDT Yeimi Chaudhry MD PATHOLOGY/CYTOLO GY Performing Organization Address [facility]/ZIP Co de Phone Number [facility] [address] [place] [address], [place] * SCAN-ULTRASOUND REPORT (11/17/2023 12:00 AM CDT) Only the most recent of2 resultswithin the time period is included. Anatomical Region Laterality Modality Other Scanner OTHER * ANTI HCV (10/05/2023 9:25 AM CDT) HEPATITIS C ANTIBODY Non-Reacti ve Non-React radha 10/05/2023 5:41 PM CDT [facility] TRAL LABORATORY Comment:Please note, per www [...] Devine MD SEND OUTS Performing Organization Address [facility]/ZIP Co de Phone Number [facility] [address] [place] [address], [place] * CONTAINER REPAIRER THIN PREP PAP SCREEN IMAGED [[id number]] (09/27/2019 2:00 PM CDT) Case Report Gynecologic Cytology Report Case: [id number] Authorizing Provider: Ashlie Devine MD Collected: 09/27/2019 1400 Ordering Location: [facility] Received: 09/27/2019 1438 First Screen: Malika Duenas Specimen: CONTAINER REPAIRER ThinPrep Vial Screening, Cervical 10/07/2019 11:51 AM CDT [facility] INTERPRETATION/ RESULT NEGATIVE FOR INTRAEPITHELIAL LESION OR MALIGNANCY (NIL) (none) 10/07/2019 11:51 AM CDT [facility] IMEN ADEQUACY Satisfactory for evaluation No endocervical component seen 10/07/2019 11:51 AM CDT [facility] ENTRAL LABORATORY HPV REQUEST HPV and PAP 10/07/2019 11:51 AM CDT [facility] Date of LMP 09/11/2019 10/07/2019 11:51 AM CDT [facility] ENTRAL LABORATORY Last Pap Date 09/16/16 10/07/2019 11:51 AM CDT [facility]- ENTRAL LABORATORY Last Pap Result NIL 0 11:51 AM CDT [facility]- ENTRAL LABORATORY Abnormal Pap or [place] Bx in last 5 years No 10/07/2019 11:51 AM CDT [facility] Menstrual Status Regular Periods 10/07/2019 11:51 AM CDT [facility] ENTRAL LABORATORY [place] Bx Done Today No 10/07/2019 11:51 AM CDT [facility] Additional Information None given 10/07/2019 11:51 AM CDT [facility] Comment: Cytology is screened at [facility], Central Laboratory - [address], [place] [address] and [facility] Laboratory - [address] [place] [address] [address], [place] [address] and [facility] Laboratory - [address] [place] [address] Interpreted at [facility], Central Laboratory - [address], [place] [address] Automated Review Successful 10/07/2019 11:51 AM CDT [facility] Comment:Specimen processed s uccessfully by automated customs opener verifier packer device, ThinPrep Imaging System, [employer] ANCILLARY TESTING CONTAINER REPAIRER HPV Ordered, Please see separate report 10/07/2019 11:51 AM CDT [facility] Note The pap test is [...] lesions. 10/07/2019 11:51 AM CDT [facility]- ENTRAL LABORATORY Other (Cervical) Non-Blood / Unknown 09/27/2019 2:00 PM CDT 09/27/2019 2:38 PM CDT Ashlie Devine MD PATHOLOGY/CYTOLOG Y [facility] [address] [place] [address], [place] * ANTI HIV 1/2 (08/17/2017 10:25 AM CDT) HIV-1/HIV-2 ANTIBODY Non-Reacti ve Non-Reacti ve 08/17/2017 6:37 PM CDT [facility] TRAL LABORATORY Comment:HIV-1 p24 and HIV-1/ HIV-2 Ab not detected. Blood BLOOD SPECIMEN / Unknown Butterfly / Unknown 08/17/2017 10:25 AM CDT 08/17/2017 10:25 AM CDT Vic Jessica MD SEND OUTS [facility] [address] [place] [address], from Last 3 Months or Most Recently Relevant to Health Maintenance Advance Directives * Full Code (Latest Code Status on File) Date Activated Date Inactivated Comments 03/20/2018 2:26 PM 03/26/2018 3:44 PM Care Teams Occupational Therapy Co Director Relationship Specialty Start Date End Date Ashlie Devine MD [address] [place] [address] PCP - General Family Practice 06/20/14 Vic Jessica MD [address] [place] [address] [address] Family Practice Family Practice 08/17/17
--- OUTSIDE RECORDS SUMMARY | 2024-02-02 11:07 | XMS_ITS | Referral Summary ---
Author Organization [place] Address [address] [place] [address] Care Team Providers Care Overcoil Stepper Name Role Phone No Ref-Primary, Physician Primary [...] Comprehensive metabolic panel (07/07/2021 11:50 AM CDT) [facility] Signature Sodium 138 133 - 144 mmol/L [...] and gender (Jean goel al., NEJM, DOI: 10.1056/[id number]) Blood BLOOD SPECIMEN / Unknown Venipuncture / Unknown 07/07/2021 11:50 AM CDT 07/07/2021 11:57 AM CDT us Chris Coyle MD LAB - BLOOD ORDERABLES Final Result [facility] Acute Care Lab [address] Lab (1st floor, no room number) [place] [address], [facility] [phone] from Last 3 Months or Most Recently Relevant to Health Maintenance Insurance [facility] OUT OF STATE Care Teams Overcoil Stepper Relationship Specialty Start Date End Date No Ref-Primary, Physician PCP - General 07/07/21
== END 2024-01-31 08:53 | disposition home or self-care (01) ==
LOC: NFLDREF 02-02 11:06
PROVIDERS: PCP Family Medicine; Referring Provider Family Medicine; Visit Provider Obstetrics & Gynecology
DX: O02.1 Missed abortion (principal); N96 Recurrent pregnancy loss
CPT/HCPCS: 84702

== ENCOUNTER 2024-02-08 14:40 | Outpatient (CLI) | payer BC, SELFPAY ==
--- OUTSIDE RECORDS SUMMARY | 2024-02-12 18:13 | XMS_ITS | Referral Summary ---
Author Organization [place] Address [address] [place] [address] Care Team Providers Care Plodder Operator Name Role Phone No Ref-Primary, Physician Primary [...] Comprehensive metabolic panel (07/07/2021 11:50 AM CDT) [facility] Signature Sodium 138 133 - 144 mmol/L [...] and gender (Jean goel al., NEJM, DOI: 10.1056/[id number]) Blood BLOOD SPECIMEN / Unknown Venipuncture / Unknown 07/07/2021 11:50 AM CDT 07/07/2021 11:57 AM CDT us Chris Coyle MD LAB - BLOOD ORDERABLES Final Result [facility] Acute Care Lab [address] Lab (1st floor, no room number) [place] [address], [facility] [phone] from Last 3 Months or Most Recently Relevant to Health Maintenance Insurance [facility] OUT OF STATE Care Teams Plodder Operator Relationship Specialty Start Date End Date No Ref-Primary, Physician PCP - General 07/07/21
--- OUTSIDE RECORDS SUMMARY | 2024-02-12 18:13 | XMS_ITS | Clinical Summary ---
Author Organization [facility] Address [place], [place] [address] Care Team Providers Care Lace Roller Name Role Phone Ashlie Devine MD Primary Care Provider [phone] Vic Jessica MD Unavailable [phone] Allergies Active Allergy Reactions Criticality Noted Date [...] MD - Please call for delivery Sex/Name: [place]! FOB: Aki Dating based on: 7 week [...] Care Team Description 11/21/2023 Lab Requisition [facility] [phone] Yeimi Chaudhry MD 11/17/2023 Orders Only [facility] Scanner 1 scan: (1-Ord) [facility] OB TRANSVAGINAL , 11/17/2023 from Last 3 Months Immunizations Name Administration Dates Next Due AMB Influenza, IIV4 PF (=>6 mos Flulaval,Fluzone Fluarix)(Flu Clinic Only) 12/03/2019 COVID-19 vaccine (Moderna 100mcg/0.5mL) PFMDV 05/14/2020,04/09/2020 COVID-19 vaccine (Pfizer-Bio NTech 30mcg/0.3mL) 12YO+ ROCKY-SUCROSE PFJESENIA 03/09/2021 DTaP 10/14/1993, 1,07/22/1988,05/20,03/17/1988 Hepatitis B (Peds) [...] is your housing situation today? 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 Not on file Not on file N ot on file Not on file Not on file Not on file Not on file Not on file Not on file Not on file Not on file Obstetrics History Para Term [...] Stage,Arrest of descent, delivered, current hospitalization Delivery Location:[facility] Comments:induced at 36 2/7 for PROM , [...] kg (150 lb 6.4 oz) 10/05/2023 8:30 AM CDT Height 160.2 cm (5' 3.07) 06/06/2023 [...] Additional history exists Tetanus booster 01/30/2028 01/29/2018, 04/0 04/2009, 12/29/1999 HIV for age 15-65 Completed [...] CDT SCAN-ULTRASOUND REPORT 11/17/2023 12:00 AM CDT ANTI HCV Routine 10/05/2023 9:25 AM CDT Need for hepatitis C screening test REED OR WIND INSTRUMENT REPAIRER THIN PREP PAP SCREEN IMAGED Routine [...] 8:37 AM CDT 11/21/2023 2:02 PM CDT us Yeimi Chaudhry MD LAB BILL ONLY Final Re sult [facility] [address] [place] [address], * PATH TISSUE EXAM (11/21/2023 8:35 AM CDT) Case Report Pathology Report Case: [id number] Authorizing Provider: Yeimi Chaudhry MD Collected: 11/21/2023 0835 Ordering Location: [facility] Received: 11/21/2023 1448 Pathologist: Andrea Robbins MD Specimen: Products of Conception 11/23/2023 10:18 AM CDT [facility] [employer] [facility] ENTRAL LABORATORY Final Diagnosis A) UTERINE CONTENTS, CURETTAGE: 1. Decidua, placental implantation site and immature chorionic villi consistent with intrauterine products of conception 2. Negative for somatic tissue, grossly and microscopically 3. Negative for abnormal trophoblastic proliferation and malignancy 11/23/2023 10:18 AM CDT [facility] ENTRAL LABORATORY Clinical Information Missed 11/23/2023 10:18 AM CDT [facility] ENTRAL LABORATORY Gross Description A) Received in formalin, labeled with the patient's name and products of conception, is a 4.0 x 3.3 x 1.2 cm aggregate of hemorrhagic, castillo fibromembranous tissues admixed with chorionic villi. No somatic tissue or hydropic villi are identified. [place]yer sections are submitted in five cassettes. KMN 11/21/2023 11/23/2023 10:18 AM CDT [facility] ENTRAL LABORATORY Microscopic Description The final diagnosis is based on microscopic examination of appropriate sections of all specimens. 11/23/2023 10:18 AM CDT [facility] [employer] LABORATORY-C ENTRAL LABORATORY Additional Information Interpreted at [facility], Central Laboratory - [address], [place] [address] 11/23/2023 10:18 AM CDT [facility]- ENTRAL LABORATORY Other (Products of Conception) 11/21/2023 8:35 AM CDT 11/21/2023 2:48 PM CDT us Yeimi Chaudhry MD PATHOLOGY/CYTOLOGY Final Result [facility] [address] [place] [address], [place] * SCAN-ULTRASOUND REPORT (11/17/2023 12:00 AM CDT) Anatomical Region Laterality Modality Other us Scanner OTHER Final Result * ANTI HCV (10/05/2023 9:25 AM CDT) HEPATITIS C ANTIBODY Non-Reacti ve Non-React radha 10/05/2023 5:41 PM CDT [facility] TRAL LABORATORY Comment:Please note, per www .CDC.gov: [...] 9:25 AM CDT 10/05/2023 9:25 AM CDT us Ashlie Devine MD SEND OUTS Final Res ult [facility] [address] [place] [address], [place] * REED OR WIND INSTRUMENT REPAIRER THIN PREP PAP SCREEN IMAGED [[id number]] (09/27/2019 2:00 PM CDT) Case Report Gynecologic Cytology Report Case: [id number] Authorizing Provider: Ashlie Devine MD Collected: 09/27/2019 1400 Ordering Location: [facility] Received: 09/27/2019 1438 First Screen: Malika Duenas Specimen: REED OR WIND INSTRUMENT REPAIRER ThinPrep Vial Screening, Cervical 10/07/2019 11:51 AM CDT [facility] ENTRAL LABORATORY INTERPRETATION/ RESULT NEGATIVE FOR INTRAEPITHELIAL LESION OR MALIGNANCY (NIL) (none) 10/07/2019 11:51 AM CDT [facility] ENTRAL LABORATORY IMEN ADEQUACY Satisfactory for evaluation No endocervical component seen 10/07/2019 11:51 AM CDT [facility] ENTRAL LABORATORY HPV REQUEST HPV and PAP 10/07/2019 11:51 AM CDT [facility] ENTRAL LABORATORY Date of LMP 09/11/2019 10/07/2019 11:51 AM CDT [facility] ENTRAL LABORAT[facility] Last Pap Date 09/16/16 10/07/2019 11:51 AM CDT [facility] ENTRAL LABORATORY Last Pap Result NIL 0 11:51 AM CDT [facility] ENTRAL LABORATORY Abnormal Pap or [place] Bx in last 5 years No 10/07/2019 11:51 AM CDT [facility] ENTRAL LABORATORY Menstrual Status Regular Periods 10/07/2019 11:51 AM CDT [facility] ENTRAL LABORATORY [place] Bx Done Today No 10/07/2019 11:51 AM CDT [facility] [employer] [facility]- ENTRAL LABORATORY Additional Information None given 10/07/2019 11:51 AM CDT [facility] ENTRAL LABORATORY Comment: Cytology is screened at [facility], Central Laboratory - [address], [place] [address] and [facility] Laboratory - [address] [place] [address] and [facility] Laboratory - [address] [place] [address] Interpreted at [facility], Central Laboratory - [address], [place] [address] Automated Review Successful 10/07/2019 11:51 AM CDT [facility] ENTRAL LABORATORY Comment:Specimen processed s uccessfully by automated rubber compounder device, ThinPrep Imaging System, [employer] ANCILLARY TESTING REED OR WIND INSTRUMENT REPAIRER HPV Ordered, Please see separate report 10/07/2019 11:51 AM CDT [facility] ENTRAL LABORATORY Note The pap test [...] and malignant lesions. 10/07/2019 11:51 AM CDT [facility] ENTRAL LABORATORY Other (Cervical) Non-Blood / Unknown 09/27/2019 2:00 PM CDT 09/27/2019 2:38 PM CDT us Ashlie Devine MD PATHOLOGY/CYTOLOGY Final Result [facility] [address] [place] [address], * ANTI HIV 1/2 (08/17/2017 10:25 AM CDT) HIV-1/HIV-2 ANTIBODY Non-Reacti ve Non-Reacti ve 08/17/2017 6:37 PM CDT [facility] TRAL LABORATORY Comment:HIV-1 p24 and HIV-1/ HIV-2 Ab not detected. Blood BLOOD SPECIMEN / Unknown Butterfly / Unknown 08/17/2017 10:25 AM CDT 08/17/2017 10:25 AM CDT us Vic Jessica MD SEND OUTS Final Re sult [facility] [address] [place] [address], from Last 3 Months or Most Recently Relevant to Health Maintenance Insurance [employer] [address] [id number] [address] [id number] [address] [employer] [address] [place] [id number] Advance Directives * Full Code (Latest Code Status on File) Date Activated Date Inactivated Comments 03/20/2018 2:26 PM 03/26/2018 3:44 PM Care Teams Lace Roller Relationship Specialty Start Date End Date Ashlie Devine MD [address] [place] [address] [address] PCP - General Family Practice 06/20/14 Vic Jessica MD [address] [place] [address] [address] [facility] Practice Family Practice 08/17/17
--- OUTSIDE RECORDS SUMMARY | 2024-02-12 18:13 | XMS_ITS | Clinical Summary ---
Author Organization [place] Address [address] [place] [address] Care Team Providers Care Oil Pipeline Operator Name Role Phone No Ref-Primary, Physician [...] and gender (Jean et al., NEJM, DOI: 10.1056/[id number]) Blood BLOOD SPECIMEN / Unknown Venipuncture / Unknown 07/07/2021 11:50 AM CDT 07/07/2021 11:57 AM CDT us Chris Coyle MD LAB - BLOOD ORDERABLES Final Result LABORATORY [facility] Acute Care Lab [address] Lab (1st floor, no room number) [place] [address], [place] [phone] from Last 3 Months or Most Recently Relevant to Health Maintenance Insurance [facility] OUT OF STATE Care Teams Oil Pipeline Operator Relationship Specialty Start Date End Date No Ref-Primary, Physician PCP - General 07/07/21
== END 2024-02-08 14:41 | disposition home or self-care (01) ==
LOC: NFLDREF 02-12 18:12
PROVIDERS: PCP Family Medicine; Referring Provider Family Medicine; Visit Provider Obstetrics & Gynecology
DX: O20.9 Hemorrhage in early pregnancy, unspecified (principal)
CPT/HCPCS: 84702